=== PATIENT | female | born 1935 | race Caucasian/White ===

== ENCOUNTER 2016-11-11 15:52 | Emergency (ER) | payer MEDICARE, OTHER ==
[2016-11-11 16:02] VITALS: BP 107/93
--- NOTE | 2016-11-11 16:58 | EDM.PDOC ---
ED HPI GENERAL MEDICAL PROBLEM - General Chief Complaint: Respiratory Problem Stated Complaint: ASTHMA FLARED UP Time Seen by Provider: 11/11/16 16:45 Source of Information: Reports: Patient History Limitations: Reports: No Limitations - History of Present Illness INITIAL COMMENTS - FREE TEXT/NARRATIVE: The patient reports she has been having increased shortness of breath for the past 3 days. The patient also reports some pain in her chest going to her back. The patient does have a history of asthma. The patient reports the last time she had these symptoms her symptoms were improved with a CPAP. The patient attempted to get into the clinic, but was advised to come to the ED for continued evaluation and further management. Onset Date: 11/09/16 Duration: Constant, Getting Worse Location: Reports: Chest Quality: Reports: Dull, Pressure Severity: Moderate Improves with: Reports: None Worsens with: Reports: None Associated Symptoms: Reports: Chest Pain, Shortness of Breath Chest Pain Score (Numeric/FACES): 8 - Related Data Allergies Allergy/AdvReac Type Severity Reaction Status Date / Time amoxicillin [Amoxicillin] Allergy Abdominal Verified 11/11/16 15:58 Pain amoxicillin trihydrate Allergy Cannot Verified 11/11/16 15:58 [From Augmentin] Remember fluticasone propionate Allergy Cannot Verified 11/11/16 15:58 [From Flonase] Remember gabapentin Allergy Cannot Verified 11/11/16 15:58 Remember levofloxacin [From Levaquin] Allergy Cannot Verified 11/11/16 15:58 Remember potassium clavulanate Allergy Cannot Verified 11/11/16 15:58 [From Augmentin] Remember pravastatin Allergy Cannot Verified 11/11/16 15:58 Remember rosuvastatin calcium Allergy Cannot Verified 11/11/16 15:58 [From Crestor] Remember simvastatin Allergy Cannot Verified 11/11/16 15:58 Remember Home Meds: Home Meds Acetaminophen/HYDROcodone [[place] 325-7.5 MG] 1 cap PO Q6HR PRN 05/04/14 [History ] Budesonide [Pulmicort] 0.5 mg IH BID PRN 05/04/14 [History] LORazepam [Ativan] 0.5 mg PO Q6H PRN 05/04/14 [History] Metolazone [Zaroxolyn] 5 mg ORAL.INH DAILY 05/04/14 [History] Omeprazole 20 mg PO DAILY 05/04/14 [History] Potassium Chloride 20 meq PO DAILY 05/04/14 [History] Albuterol [Proair HFA] 2 puff INH DAILY PRN 05/22/14 [History] Calcium Carb & Citrate/Vit D3 [Calcium + D3 ER Tablet] 1 each PO BID 05/22/14 [ History] Hydrocodone/Acetaminophen [Hydrocodon-Acetaminoph 7.5-325] 1 tab PO Q6H PRN 06/04 [History] Lisinopril [Prinivil] 20 mg PO DAILY 05/22/14 [History] Pravastatin [Pravachol] 20 mg PO DAILY 05/22/14 [History] Past Medical History HEENT History: Reports: Impaired Vision Cardiovascular History: Reports: Hypertension Respiratory History: Reports: Asthma Gastrointestinal History: Reports: GERD Musculoskeletal History: Reports: Other (See Below) Other Musculoskeletal History: nerve pain, ankle pain Psychiatric History: Reports: Anxiety, Depression Endocrine/Metabolic History: Reports: Obesity/BMI 30+ - Past Surgical History GI Surgical History: Reports: Appendectomy, Cholecystectomy Social & Family History - Family History Family Medical History: Noncontributory - Tobacco Use Smoking Status *Q: Never Smoker Used Tobacco, but Quit: No Second Hand Smoke Exposure: No - Caffeine Use Caffeine Use: Reports: None - Alcohol Use Days Per Week of Alcohol Use: 0 - Recreational Drug Use Recreational Drug Use: No Drug Use in Last 12 Months: No - Living Situation & Occupation Living situation: Reports: Occupation: Retired ED ROS GENERAL - Review of Systems Review Of Systems: ROS reveals no pertinent complaints other than HPI. ED EXAM, GENERAL - Physical Exam Exam: See Below Exam Limited By: No Limitations General Appearance: Alert, WD/WN, Moderate Distress Eye Exam: Bilateral Eye: EOMI, Normal Inspection, PERRL Ears: Normal External Exam, Normal Canal, Hearing Grossly Normal, Normal TMs Nose: Normal Inspection, Normal Mucosa, No Blood Throat/Mouth: Normal Inspection, Normal Lips, Normal Teeth, Normal Gums, Normal Oropharynx, Normal Voice, No Airway Compromise Head: Atraumatic, Normocephalic Neck: Normal Inspection, Supple, Non-Tender, Full Range of Motion Respiratory/Chest: No Respiratory Distress, No Accessory Muscle Use, Chest Non- Tender, Decreased Breath Sounds (RLQ) Cardiovascular: Normal Peripheral Pulses, Regular Rate, Rhythm, No Edema, No Gallop, No JVD, No Murmur, No Rub GI/Abdominal: Normal Bowel Sounds, Soft, Non-Tender, No Organomegaly, No Distention, No Abnormal Bruit, No Mass (Female) Exam: Deferred Rectal (Female) Exam: Deferred Back Exam: Normal Inspection, Full Range of Motion, NT Extremities: Normal Inspection, Normal Range of Motion, Non-Tender, Normal Capillary Refill, No Pedal Edema Neurological: Alert, Oriented, CN II-XII Intact, Normal Cognition, Normal Gait, Normal Reflexes, No Motor/Sensory Deficits Psychiatric: Normal Affect, Normal Mood Skin Exam: Warm Lymphatic: No Adenopathy Course - Vital Signs Last Recorded V/S: Last Vital Signs Temp 36.8 C 11/11/16 16:00 Pulse 108 H 11/11/16 16:00 Resp 20 11/11/16 16:00 BP 107/93 H 11/11/16 16:00 Pulse Ox 93 L 11/11/16 16:00 - Orders/Labs/Meds Orders: Active Orders 24 hr Category Date Time Status EKG Documentation Completion [RC] URGENT Care 11/11/16 16:53 Active Chest 2V [CR] Urgent Exams 11/11/16 16:27 Taken Labs: Laboratory Tests 11/11/16 11/11/16 11/11/16 Range/Units 16:38 16:38 16:38 WBC 10.0 (5.0-10.0) 10^3/uL RBC 4.17 L (4.2-5.4) 10^6/uL Hgb 12.6 (12.0-16.0) g/dL Hct 36.8 L (37.0-47.0) % MCV 88.2 (80-100) fL MCH 30.2 (27.0-34.0) pg MCHC 34.2 (33.0-35.0) g/dL Plt Count 302 (150-450) 10^3/uL Neut % (Auto) 57.6 (42.2-75.2) % Lymph % (Auto) 26.0 (20.5-50.1) % [place] % (Auto) 10.4 H (2-8) % Eos % (Auto) 5.7 H (1.0-3.0) % Baso % (Auto) 0.3 (0.0-1.0) % Sodium 136 (135-145) mmol/L Potassium 3.6 (3.6-5.0) mmol/L Chloride 97 L (101-111) mmol/L Carbon Dioxide 28.0 (21.0-31.0) mmol/L Anion Gap 14.6 BUN 16 (7-18) mg/dL Creatinine 0.9 (0.6-1.3) mg/dL Est Cr Clr Drug Dosing 40.09 mL/min Estimated GFR (MDRD) > 60 BUN/Creatinine Ratio 17.77 Glucose 148 H (74-105) mg/dL Lactic Acid 1.6 (0.5-2.2) mmol/L Calcium 9.5 (8.4-10.2) mg/dl Total Bilirubin 0.4 (0.2-1.0) mg/dL AST 24 (10-42) IU/L ALT 20 (10-60) IU/L Alkaline Phosphatase 58 (42-121) IU/L Troponin I (0.00-0.02) ng/ml Total Protein 7.5 (6.7-8.2) g/dl Albumin 4.0 (3.2-5.5) g/dl Globulin 3.5 Albumin/Globulin Ratio 1.14 07/25/17 Range/Units 16:38 WBC (5.0-10.0) 10^3/uL RBC (4.2-5.4) 10^6/uL Hgb (12.0-16.0) g/dL Hct (37.0-47.0) % MCV (80-100) fL MCH (27.0-34.0) pg MCHC (33.0-35.0) g/dL Plt Count (150-450) 10^3/uL Neut % (Auto) (42.2-75.2) % Lymph % (Auto) (20.5-50.1) % [place] % (Auto) (2-8) % Eos % (Auto) (1.0-3.0) % Baso % (Auto) (0.0-1.0) % Sodium (135-145) mmol/L Potassium (3.6-5.0) mmol/L Chloride (101-111) mmol/L Carbon Dioxide (21.0-31.0) mmol/L Anion Gap BUN (7-18) mg/dL Creatinine (0.6-1.3) mg/dL Est Cr Clr Drug Dosing mL/min Estimated GFR (MDRD) BUN/Creatinine Ratio Glucose (74-105) mg/dL Lactic Acid (0.5-2.2) mmol/L Calcium (8.4-10.2) mg/dl Total Bilirubin (0.2-1.0) mg/dL AST (10-42) IU/L ALT (10-60) IU/L Alkaline Phosphatase (42-121) IU/L Troponin I < 0.02 (0.00-0.02) ng/ml Total Protein (6.7-8.2) g/dl Albumin (3.2-5.5) g/dl Globulin Albumin/Globulin Ratio Meds: Medications Discontinued Medications Generic Name Dose Route Start Last Admin Trade Name Freq PRN Reason Stop Dose Admin Methylprednisolone Sodium Succinate 40 mg 11/11/16 17:27 Solu-Medrol IM 11/11/16 17:28 ONETIME ONE Departure - Departure Time of Disposition: 17:29 Disposition: Home, Self-Care 01 Condition: Fair Clinical Impression: Asthma exacerbation in COPD - Discharge Information Instructions: Chronic Obstructive Pulmonary Disease Exacerbation, [id number] , Asthma, Adult Forms: ED Department Discharge Care Plan Goals: The patient was advised of her examination, lab and x-ray results during the visit. The patient was given an injection of SoluMedrol (40 mg) while in the ED. The patient was discharged with a script for Prednisone (20 mg) #10 to take 2 by mouth daily for 5 days and Keflex (500 mg) #30 to take 1 by mouth 3 times per day for 10 days. If the patient has any additional symptoms or concerns, the patient should follow-up with her primary care facility or return to the emergency department. - My Orders Last 24 Hours: My Active Orders 11/11/16 16:27 Chest 2V [CR] Urgent 11/11/16 16:53 EKG Documentation Completion [RC] URGENT - Assessment/Plan Last 24 Hours: My Active Orders 11/11/16 16:27 Chest 2V [CR] Urgent 11/11/16 16:53 EKG Documentation Completion [RC] URGENT
[2016-11-11 17:06] LABS: CHLORIDE,CL 97 mmol/L (101-111); SODIUM,NA 136 mmol/L (135-145)
[2016-11-11] MEDS ORDERED: methylPREDNISolone Sodium Succinate 40 MG/1 ML SDV IM ONE (17:27)
--- NOTE | 2016-11-12 09:45 | EKG ---
11/11/2016 - KLAUDIA GERBER RADHA - TIME: 1554 hours. EKG shows normal sinus rhythm. [facility] /[id number]
== END 2016-11-11 17:40 | disposition home or self-care (01) ==
LOC: DL.ED 15:52
DX: J45.901 Unspecified asthma with (acute) exacerbation (principal); J44.9 Chronic obstructive pulmonary disease, unspecified; H54.7 Unspecified visual loss; I10 Essential (primary) hypertension; K21.9 Gastro-esophageal reflux disease without esophagitis; E66.9 Obesity, unspecified; Z90.49 Acquired absence of other specified parts of digestive tract; Z88.1 Allergy status to other antibiotic agents; Z88.8 Allergy status to other drugs, medicaments and biological substances; Z79.899 Other long term (current) drug therapy
CPT/HCPCS: 36415; 71020; 80053; 83605; 84484; 85025; 93005; 93010; 96372; 99285; J2920

== ENCOUNTER 2018-12-17 19:40 | Inpatient (IN) | payer MEDICARE, OTHER ==
[2018-12-17] MEDS ORDERED: Ondansetron 4 MG/2 ML SDV IV ONE (20:15)
[2018-12-17] MEDS ORDERED: Sodium Chloride 0.9% 1,000 ML IV ONE (20:15)
[2018-12-17 20:46] LABS: ANION GAP 18.4
[2018-12-17] MEDS ORDERED: Albuterol/Ipratropium 3.0-0.5 MG/3 ML Neb Soln NEB ONE (20:59)
--- NOTE | 2018-12-17 21:57 | EDM.PDOC ---
ED HPI GENERAL MEDICAL PROBLEM - General Chief Complaint: Gastrointestinal Problem Stated Complaint: VOMITING Time Seen by Provider: 12/17/18 20:45 Source of Information: Reports: Patient History Limitations: Reports: No Limitations - History of Present Illness INITIAL COMMENTS - FREE TEXT/NARRATIVE: This 83 yo female patient reports to the ED with nausea/vomiting due to taking antibiotics. The patient also reports a cough that has been getting worse throughout the week. The patient was seen at the [facility] this week, diagnosed with a UTI and started on an antibiotic (patient does not recall the name). Two days later, the patient was called by the clinic and told she also has pneumonia. The patient was advised to stop taking the UTI antibiotic and start a different antibiotic. Onset: Today Duration: Constant, Resolved Prior to Arrival Location: Reports: Chest Quality: Reports: Other Severity: Moderate Improves with: Reports: None Worsens with: Reports: None Associated Symptoms: Reports: cough w sputum, Nausea/Vomiting Lower Abdomen Pain Score (Numeric/FACES): 8 - Related Data Allergies Allergy/AdvReac Type Severity Reaction Status Date / Time amoxicillin [Amoxicillin] Allergy Abdominal Verified 12/17/18 20:34 Pain amoxicillin trihydrate Allergy Cannot Verified 12/17/18 20:34 [From Augmentin] Remember fluticasone propionate Allergy Cannot Verified 12/17/18 20:34 [From Flonase] Remember gabapentin Allergy Cannot Verified 12/17/18 20:34 Remember levofloxacin [From Levaquin] Allergy Cannot Verified 12/17/18 20:34 Remember potassium clavulanate Allergy Cannot Verified 12/17/18 20:34 [From Augmentin] Remember pravastatin Allergy Cannot Verified 12/17/18 20:34 Remember rosuvastatin calcium Allergy Cannot Verified 12/17/18 20:34 [From Crestor] Remember simvastatin Allergy Cannot Verified 12/17/18 20:34 Remember Home Meds: Home Meds Acetaminophen/HYDROcodone [[place] 325-7.5 MG] 1 cap PO Q6HR PRN 05/04/14 [History ] Budesonide [Pulmicort] 0.5 mg IH BID PRN 05/04/14 [History] LORazepam [Ativan] 0.5 mg PO Q6H PRN 05/04/14 [History] Omeprazole 20 mg PO DAILY 05/04/14 [History] Potassium Chloride 20 meq PO DAILY 05/04/14 [History] metOLazone [Zaroxolyn] 5 mg ORAL.INH DAILY 05/04/14 [History] Albuterol [Proair HFA] 2 puff INH DAILY PRN 05/22/14 [History] Calcium Carb & Citrate/Vit D3 [Calcium + D3 ER Tablet] 1 each PO BID 05/22/14 [ History] Hydrocodone/Acetaminophen [Hydrocodon-Acetaminoph 7.5-325] 1 tab PO Q6H PRN 06/04 [History] Lisinopril [Prinivil] 20 mg PO DAILY 05/22/14 [History] Pravastatin [Pravachol] 20 mg PO DAILY 05/22/14 [History] Doxycycline Hyclate 1 tab PO BID 12/17/18 [History] Ondansetron HCl [Ondansetron] 1 tab PO Q8HR 12/17/18 [History] Past Medical History HEENT History: Reports: Impaired Vision Cardiovascular History: Reports: Hypertension Respiratory History: Reports: Asthma Gastrointestinal History: Reports: GERD Musculoskeletal History: Reports: Other (See Below) Other Musculoskeletal History: nerve pain, ankle pain Psychiatric History: Reports: Anxiety, Depression Endocrine/Metabolic History: Reports: Obesity/BMI 30+ - Past Surgical History GI Surgical History: Reports: Appendectomy, Cholecystectomy Social & Family History - Family History Family Medical History: Noncontributory - Tobacco Use Smoking Status *Q: Never Smoker Second Hand Smoke Exposure: No - Caffeine Use Caffeine Use: Reports: Soda - Recreational Drug Use Recreational Drug Use: No - Living Situation & Occupation Living situation: Reports: Occupation: Retired ED ROS GENERAL - Review of Systems Review Of Systems: ROS reveals no pertinent complaints other than HPI. ED EXAM, GENERAL - Physical Exam Exam: See Below Exam Limited By: No Limitations General Appearance: Alert, WD/WN, Moderate Distress Eye Exam: Bilateral Eye: EOMI, Normal Inspection, PERRL Ears: Normal External Exam, Normal Canal, Hearing Grossly Normal, Normal TMs Nose: Normal Inspection, Normal Mucosa, No Blood Throat/Mouth: Normal Inspection, Normal Lips, Normal Teeth, Normal Gums, Normal Oropharynx, Normal Voice, No Airway Compromise Head: Atraumatic, Normocephalic Neck: Normal Inspection, Supple, Non-Tender, Full Range of Motion Respiratory/Chest: Rhonchi (diffuse), Wheezing (diffuse) Cardiovascular: Normal Peripheral Pulses, Regular Rate, Rhythm, No Edema, No Gallop, No JVD, No Murmur, No Rub GI/Abdominal: Normal Bowel Sounds, Soft, Non-Tender, No Organomegaly, No Distention, No Abnormal Bruit, No Mass (Female) Exam: Deferred Rectal (Female) Exam: Deferred Back Exam: Normal Inspection, Full Range of Motion, NT Extremities: Normal Inspection, Normal Range of Motion, Non-Tender, Normal Capillary Refill, No Pedal Edema Neurological: Alert, Oriented, CN II-XII Intact, Normal Cognition, Normal Gait, Normal Reflexes, No Motor/Sensory Deficits Psychiatric: Normal Affect, Normal Mood Skin Exam: Warm, Dry, Intact, Normal Color, No Rash Lymphatic: No Adenopathy Course - Vital Signs Last Recorded V/S: Last Vital Signs Temp 37.1 C 12/17/18 20:01 Pulse 90 12/17/18 20:01 Resp 19 12/17/18 20:01 BP 159/88 H 12/17/18 20:01 Pulse Ox 96 12/17/18 20:01 - Orders/Labs/Meds Orders: Active Orders 24 hr Category Date Time Status RT Aerosol Therapy [RC] ASDIRECTED Care 12/17/18 20:59 Ordered Chest 2V [CR] Urgent Exams 12/17/18 20:56 Ordered CULTURE BLOOD [BC] Stat Lab 12/17/18 20:16 Ordered CULTURE BLOOD [BC] Stat Lab 12/17/18 21:29 Ordered Labs: Laboratory Tests 12/17/18 12/17/18 12/17/18 Range/Units 20:19 20:19 20:19 WBC 12.1 H (5.0-10.0) 10^3/uL RBC 4.59 (4.2-5.4) 10^6/uL Hgb 13.9 (12.0-16.0) g/dL Hct 38.8 (37.0-47.0) % MCV 84.5 D (80-100) fL MCH 30.3 (27.0-34.0) pg MCHC 35.8 H (33.0-35.0) g/dL Plt Count 322 (150-450) 10^3/uL Neut % (Auto) 75.6 H (42.2-75.2) % Lymph % (Auto) 16.3 L (20.5-50.1) % [place] % (Auto) 7.8 (2-8) % Eos % (Auto) 0.2 L (1.0-3.0) % Baso % (Auto) 0.1 (0.0-1.0) % Sodium 123 L D (135-145) mmol/L Potassium 3.4 L (3.6-5.0) mmol/L Chloride 85 L D (101-111) mmol/L Carbon Dioxide 23.0 (21.0-31.0) mmol/L Anion Gap 18.4 BUN 15 (7-18) mg/dL Creatinine 1.0 (0.6-1.3) mg/dL Est Cr Clr Drug Dosing 34.90 mL/min Estimated GFR (MDRD) 53 BUN/Creatinine Ratio 15.00 Glucose 202 H (74-105) mg/dL Lactic Acid 1.5 (0.5-2.2) mmol/L Calcium 9.1 (8.4-10.2) mg/dl Total Bilirubin 1.0 (0.2-1.0) mg/dL AST 26 (10-42) IU/L ALT 26 (10-60) IU/L Alkaline Phosphatase 53 (42-121) IU/L Total Protein 7.7 (6.7-8.2) g/dl Albumin 4.3 (3.2-5.5) g/dl Globulin 3.4 Albumin/Globulin Ratio 1.26 Meds: Medications Discontinued Medications Generic Name Dose Route Start Last Admin Trade Name Freq PRN Reason Stop Dose Admin Albuterol/Ipratropium 3 ml 12/17/18 20:59 12/17/18 21:06 Duoneb 3.0-0.5 Mg/3 Ml NEB 12/17/18 21:00 3 ml ONETIME ONE Administration Sodium Chloride 1,000 mls @ 999 mls/hr 12/17/18 20:15 12/17/18 21:03 Normal Saline IV 12/17/18 21:15 125 mls/hr .BOLUS ONE Infusion Ondansetron HCl 4 mg 12/17/18 20:15 12/17/18 20:30 Zofran IV 12/17/18 20:16 4 mg ONETIME ONE Administration Departure - Departure Time of Disposition: 22:05 Disposition: Admitted As Inpatient 68 Condition: Fair Clinical Impression: Hyponatremia Pneumonia Qualifiers: Pneumonia type: due to unspecified organism Laterality: unspecified laterality Lung location: unspecified part of lung Qualified Code(s): J18.9 - Pneumonia, unspecified organism Nausea & vomiting Qualifiers: Vomiting type: unspecified Vomiting Intractability: unspecified Qualified Code( s): R11.2 - Nausea with vomiting, unspecified - Discharge Information Care Plan Goals: Discussed the patient's history, examination, lab and preliminary x-ray read with Dr. Ghosh. Dr. Ghosh accepted the patient as an acute inpatient admission at . - My Orders Last 24 Hours: My Active Orders 12/17/18 20:16 CULTURE BLOOD [BC] Stat 12/17/18 20:56 Chest 2V [CR] Urgent 12/17/18 20:59 RT Aerosol Therapy [RC] ASDIRECTED 12/17/18 21:29 CULTURE BLOOD [BC] Stat - Assessment/Plan Last 24 Hours: My Active Orders 12/17/18 20:16 CULTURE BLOOD [BC] Stat 12/17/18 20:56 Chest 2V [CR] Urgent 12/17/18 20:59 RT Aerosol Therapy [RC] ASDIRECTED 12/17/18 21:29 CULTURE BLOOD [BC] Stat
[2018-12-17] MEDS ORDERED: Potassium Chloride 20 MEQ in Premix Bag 1 BAG IV ONE (23:00)
[2018-12-17] MEDS ORDERED: Ondansetron 4 MG/2 ML SDV IVPUSH PRN (23:02)
[2018-12-17] MEDS ORDERED: ACETAMINOPHEN PO PRN (23:06)
[2018-12-17] MEDS ORDERED: HYDROCODONE PO PRN (23:06)
[2018-12-17] MEDS ORDERED: Albuterol 6.7 GM Inhaler INH PRN (23:06)
[2018-12-17] MEDS ORDERED: Benzonatate 100 MG Cap PO PRN (23:11)
--- NOTE | 2018-12-17 23:19 | PCM.HP ---
H&P History of Present Illness - General Date of Service: 12/17/18 Admit Problem/Dx: Admission Diagnosis/Problem Admission Diagnosis/Problem Respiratory distress Source of Information: Patient History Limitations: Reports: No Limitations - History of Present Illness Initial Comments - Free Text/Narative: The patient is an 83-year-old female with medical history of hypertension, gastroesophageal reflux disease, depression, asthma. The patient presented with complaint of cough and sore throats whic has been going on for one week. Symptoms has worsened over time. The patient has been seen multiple times by Nurse practitioner's.. Initially she was given nitrofurantoin for bladder infection. Later on antibiotics were changed. She has had multiple antibiotics including Bactrim, levofloxacin, and most recently doxycycline. She was told that she has pneumonia and also had tract infection. With the last antibiotics, the patient started having intractable nausea and vomiting. Has vomited multiple times and not able to keep food down. Because of that she presented to the emergency room Lower Abdomen Pain Score (Numeric/FACES): 8 - Related Data Allergies/Adverse Reactions: Allergies Allergy/AdvReac Type Severity Reaction Status Date / Time amoxicillin [Amoxicillin] Allergy Abdominal Verified 12/17/18 22:42 Pain amoxicillin trihydrate Allergy Cannot Verified 12/17/18 22:42 [From Augmentin] Remember fluticasone propionate Allergy Cannot Verified 12/17/18 22:42 [From Flonase] Remember gabapentin Allergy Cannot Verified 12/17/18 22:42 Remember levofloxacin [From Levaquin] Allergy Cannot Verified 12/17/18 22:42 Remember potassium clavulanate Allergy Cannot Verified 12/17/18 22:42 [From Augmentin] Remember pravastatin Allergy Cannot Verified 12/17/18 22:42 Remember rosuvastatin calcium Allergy Cannot Verified 12/17/18 22:42 [From Crestor] Remember Home Medications: Home Meds Acetaminophen/HYDROcodone [[place] 325-7.5 MG] 1 tab PO Q6HR PRN 05/04/14 [History ] Budesonide [Pulmicort] 0.5 mg NEB BID 05/04/14 [History] LORazepam [Ativan] 0.5 mg PO Q6H PRN 05/04/14 [History] Omeprazole 20 mg PO ACBREAKFAST 05/04/14 [History] Potassium Chloride 20 meq PO DAILY 05/04/14 [History] metOLazone [Zaroxolyn] 5 mg PO DAILY 05/04/14 [History] Albuterol [Proair HFA] 2 puff INH BID PRN 05/22/14 [History] Calcium Carb & Citrate/Vit D3 [Calcium + D3 ER Tablet] 2 tab PO WITHDINNER 05/22 [History] Lisinopril [Prinivil] 20 mg PO DAILY 05/22/14 [History] Pravastatin [Pravachol] 20 mg PO DAILY 05/22/14 [History] Doxycycline Hyclate 100 mg PO BID 12/17/18 [History] Levothyroxine [Synthroid] 100 mcg PO ACBREAKFAST 12/17/18 [History] Ondansetron HCl [Ondansetron] 4 mg PO Q8H PRN 12/17/18 [History] Simvastatin 10 mg PO Q48H 12/17/18 [History] Past Medical History HEENT History: Reports: Impaired Vision Cardiovascular History: Reports: Hypertension Respiratory History: Reports: Asthma Gastrointestinal History: Reports: GERD Musculoskeletal History: Reports: Other (See Below) Other Musculoskeletal History: nerve pain, ankle pain Psychiatric History: Reports: Anxiety, Depression Endocrine/Metabolic History: Reports: Obesity/BMI 30+ - Past Surgical History GI Surgical History: Reports: Appendectomy, Cholecystectomy Social & Family History - Family History Family Medical History: Noncontributory - Tobacco Use Smoking Status *Q: Never Smoker Second Hand Smoke Exposure: No - Caffeine Use Caffeine Use: Reports: Soda - Recreational Drug Use Recreational Drug Use: No - Living Situation & Occupation Living situation: Reports: Occupation: Retired H&P Review of Systems - Review of Systems: Review Of Systems: ROS reveals no pertinent complaints other than HPI. Pulmonary: Reports: No Symptoms Cardiovascular: Reports: No Symptoms Gastrointestinal: Reports: No Symptoms Genitourinary: Reports: No Symptoms Exam - Exam Exam: See Below - Vital Signs Vital Signs: Last Vital Signs Temp 37.1 C 12/17/18 20:01 Pulse 90 12/17/18 20:01 Resp 19 12/17/18 20:01 BP 159/88 H 12/17/18 20:01 Pulse Ox 96 12/17/18 20:01 Weight: 80.739 kg - Exam General: Alert, Oriented, Cooperative Neck: Supple, Trachea Midline, 2 Lungs: Decreased Breath Sounds GI/Abdominal Exam: Normal Bowel Sounds, Soft, Non-Tender, No Organomegaly, No Distention, No Abnormal Bruit, No Mass, Pelvis Stable Extremities: Normal Inspection, Normal Range of Motion, Non-Tender, No Pedal Edema, Normal Capillary Refill - Patient Data Lab Results Last 24 hrs: Laboratory Results - last 24 hr 12/17/18 12/17/18 12/17/18 Range/Units 20:19 20:19 20:19 WBC 12.1 H (5.0-10.0) 10^3/uL RBC 4.59 (4.2-5.4) 10^6/uL Hgb 13.9 (12.0-16.0) g/dL Hct 38.8 (37.0-47.0) % MCV 84.5 D (80-100) fL MCH 30.3 (27.0-34.0) pg MCHC 35.8 H (33.0-35.0) g/dL Plt Count 322 (150-450) 10^3/uL Neut % (Auto) 75.6 H (42.2-75.2) % Lymph % (Auto) 16.3 L (20.5-50.1) % [place] % (Auto) 7.8 (2-8) % Eos % (Auto) 0.2 L (1.0-3.0) % Baso % (Auto) 0.1 (0.0-1.0) % Sodium 123 L D (135-145) mmol/L Potassium 3.4 L (3.6-5.0) mmol/L Chloride 85 L D (101-111) mmol/L Carbon Dioxide 23.0 (21.0-31.0) mmol/L Anion Gap 18.4 BUN 15 (7-18) mg/dL Creatinine 1.0 (0.6-1.3) mg/dL Est Cr Clr Drug Dosing 34.90 mL/min Estimated GFR (MDRD) 53 BUN/Creatinine Ratio 15.00 Glucose 202 H (74-105) mg/dL Lactic Acid 1.5 (0.5-2.2) mmol/L Calcium 9.1 (8.4-10.2) mg/dl Total Bilirubin 1.0 (0.2-1.0) mg/dL AST 26 (10-42) IU/L ALT 26 (10-60) IU/L Alkaline Phosphatase 53 (42-121) IU/L Total Protein 7.7 (6.7-8.2) g/dl Albumin 4.3 (3.2-5.5) g/dl Globulin 3.4 Albumin/Globulin Ratio 1.26 Result Diagrams: 12/17/18 20:19 12/17/18 20:19 Problem List Initiated/Reviewed/Updated: Yes Orders Last 24hrs: Active Orders 24 hr Category Date Time Status Patient Status [ADT] Routine ADT 12/17/18 21:55 Active Patient Status [ADT] Routine ADT 12/17/18 23:02 Ordered Intake and Output [RC] QSHIFT Care 12/17/18 23:04 Ordered Oxygen Therapy [RC] PRN Care 12/17/18 23:02 Ordered RT Aerosol Therapy [RC] ASDIRECTED Care 12/17/18 20:59 Active Up ad Buffy [RC] ASDIRECTED Care 12/17/18 23:02 Ordered VTE/DVT Education [RC] PER UNIT ROUTINE Care 12/17/18 23:02 Ordered Vital Signs [RC] Q4H Care 12/17/18 23:02 Ordered Regular Diet [DIET] Diet 12/17/18 Breakfast Ordered Chest 2V [CR] Urgent Exams 12/17/18 20:56 Taken BASIC METABOLIC PANEL,BMP [CHEM] AM Lab 12/18/18 05:11 Ordered CBC WITH AUTO DIFF [HEME] AM Lab 12/18/18 05:11 Ordered CULTURE BLOOD [BC] Stat Lab 12/17/18 20:19 Received CULTURE BLOOD [BC] Stat Lab 12/17/18 21:47 Received Acetaminophen [Tylenol] Med 12/17/18 23:02 Ordered 650 mg PO Q4H PRN Acetaminophen/HYDROcodone [[place] 325-7.5 MG] Med 12/17/18 23:06 Ordered 1 tab PO Q6HR PRN Albuterol [Proventil HFA] Med 12/17/18 23:06 Ordered 2 puff INH BID PRN Azithromycin [Zithromax] 500 mg Med 12/17/18 23:15 Ordered Sodium Chloride 0.9% [Normal Saline] 250 ml IV Q24H Benzonatate [Tessalon Perles] Med 12/17/18 23:11 Ordered 100 mg PO TID PRN Budesonide [Pulmicort] Med 12/18/18 09:00 Ordered 0.5 mg NEB BID Calcium Carb & Citrate/Vit D3 [Calcium + D3 ER Tablet] Med 12/18/18 18:00 Ordered 2 tab PO WITHDINNER Heparin Sodium Med 12/18/18 06:00 Ordered 5,000 units SUBCUT Q8HR Levothyroxine [Synthroid] Med 12/18/18 06:00 Ordered 100 mcg PO ACBREAKFAST Omeprazole Med 12/18/18 06:00 Ordered 20 mg PO ACBREAKFAST Ondansetron [Zofran] Med 12/17/18 23:02 Ordered 4 mg IVPUSH Q6H PRN Sodium Chloride 0.9% @ 125 MLS/HR (1000ml) Med 12/17/18 23:15 Ordered Sodium Chloride 0.9% [Normal Saline] 1,000 ml IV ASDIRECTED cefTRIAXone [Rocephin] 1 gm Med 12/17/18 23:15 Ordered Sodium Chloride 0.9% [Normal Saline] 50 ml IV Q24H Resuscitation Status Routine Resus Stat 12/17/18 23:02 Ordered Medication Orders Acetaminophen (Tylenol) 650 mg PO Q4H PRN PRN Reason: Pain (Mild 1-3)/fever Albuterol (Proventil Hfa) gm INH BID PRN PRN Reason: Shortness of Breath Budesonide (Pulmicort) 0.5 mg NEB BID CARLA Heparin Sodium (Porcine) (Heparin Sodium) 5,000 units SUBCUT Q8HR CARLA Sodium Chloride (Normal Saline) 1,000 mls @ 125 mls/hr IV ASDIRECTED [facility]LA Azithromycin 500 mg/ Sodium (Chloride) 250 mls @ 250 mls/hr IV Q24H [facility]LA Ceftriaxone Sodium 1 gm/ (Sodium Chloride) 50 mls @ 50 mls/hr IV Q24H [facility]LA Levothyroxine Sodium (Synthroid) 100 mcg PO ACBREAKFAST CARLA Non-Formulary Medication (Acetaminophen/Hydrocodone [[place] 325-7.5 Mg]) 1 tab PO Q6HR PRN PRN Reason: Pain Non-Formulary Medication (Calcium Carb & Citrate/Vit D3 [Calcium + D3 Er Tablet] ) 2 tab PO WITHDINNER CARLA Omeprazole (Omeprazole) 20 mg PO ACBREAKFAST CARLA Ondansetron HCl (Zofran) 4 mg IVPUSH Q6H PRN PRN Reason: Nausea/Vomiting Assessment/Plan Comment:: #. Possible pneumonia Patient has been coughing. White cell count is elevated and chest x-ray showed bibasilar density mole on the left compared to the right. #. Hyponatremia likely likely due to intractable nausea and vomiting #. Hypertension Blood pressure is within acceptable limits #. Hypokalemia next and serum potassium is low down to 3.4 This is as a result of gastrointestinal loss. Patient has also been on metolazone #. Chronic medical illnesses: Depression, gastric surgery reflux disease, asthma Continue regular medications for these Plan: Admit patient to medical floor Empiric antibiotics with intravenous ceftriaxone and intravenous azithromycin Send sputum for Gram stain and cultures intravenous normal saline Obtain repeat basic metabolic panel Close hemodynamic monitoring.
[2018-12-18] MEDS: Azithromycin 500 MG in Sodium Chloride 0.9% 250 ML IV SCH ×2 (00:12→23:07)
[2018-12-18] MEDS: LORazepam 0.5 MG Tab PO PRN (00:29)
[2018-12-18] MEDS: Acetaminophen/HYDROcodone 325-5 MG Tab PO PRN ×2 (00:30→23:08)
[2018-12-18] MEDS: cefTRIAXone 1 GM in Sodium Chloride 0.9% 50 ML IV SCH (01:19)
[2018-12-18] MEDS: Sodium Chloride 0.9% 1,000 ML IV SCH ×3 (01:23→18:18)
[2018-12-18] MEDS: Acetaminophen 325 MG Tab PO PRN (01:51)
[2018-12-18] MEDS: Omeprazole 20 MG Cap.CR PO SCH (06:10)
[2018-12-18] MEDS: Levothyroxine 100 MCG Tab PO SCH (06:10)
[2018-12-18] MEDS: Heparin Sodium 5,000 Units/ML Vial SUBCUT SCH ×3 (06:10→20:59)
[2018-12-18 06:34] LABS: ANION GAP 13.4
[2018-12-18] MEDS: Budesonide 0.5 MG/2 ML Neb Susp NEB SCH ×2 (07:36→18:15)
[2018-12-18] MEDS: Lisinopril 20 MG Tab PO SCH (08:50)
--- NOTE | 2018-12-18 10:42 | PCM.PN ---
- General Info Date of Service: 12/18/18 Subjective Update: The patient offers no new complaint today Patient continues to have mild cough. She has been having intermittent nausea and vomiting.She indicates that she feels nausea. Has not vomited today. - Review of Systems General: Reports: No Symptoms Pulmonary: Reports: No Symptoms Cardiovascular: Reports: No Symptoms Gastrointestinal: Reports: No Symptoms - Patient Data Vitals - Most Recent: Last Vital Signs Temp 36.1 C 12/18/18 07:49 Pulse 75 12/18/18 07:49 Resp 18 12/18/18 07:49 BP 124/53 L 12/18/18 08:50 Pulse Ox 98 12/18/18 07:49 Weight - Most Recent: 80.739 kg I&O - Last 24 Hours: Intake & Output 12/17/18 12/18/18 12/18/18 22:59 06:59 14:59 Intake Total 300 1291 Output Total 600 550 Balance -300 741 Lab Results Last 24 Hours: Laboratory Results - last 24 hr 12/17/18 12/17/18 12/17/18 Range/Units 20:19 20:19 20:19 WBC 12.1 H (5.0-10.0) 10^3/uL RBC 4.59 (4.2-5.4) 10^6/uL Hgb 13.9 (12.0-16.0) g/dL Hct 38.8 (37.0-47.0) % MCV 84.5 D (80-100) fL MCH 30.3 (27.0-34.0) pg MCHC 35.8 H (33.0-35.0) g/dL Plt Count 322 (150-450) 10^3/uL Neut % (Auto) 75.6 H (42.2-75.2) % Lymph % (Auto) 16.3 L (20.5-50.1) % [place] % (Auto) 7.8 (2-8) % Eos % (Auto) 0.2 L (1.0-3.0) % Baso % (Auto) 0.1 (0.0-1.0) % Sodium 123 L D (135-145) mmol/L Potassium 3.4 L (3.6-5.0) mmol/L Chloride 85 L D (101-111) mmol/L Carbon Dioxide 23.0 (21.0-31.0) mmol/L Anion Gap 18.4 BUN 15 (7-18) mg/dL Creatinine 1.0 (0.6-1.3) mg/dL Est Cr Clr Drug Dosing 34.90 mL/min Estimated GFR (MDRD) 53 BUN/Creatinine Ratio 15.00 Glucose 202 H (74-105) mg/dL Lactic Acid 1.5 (0.5-2.2) mmol/L Calcium 9.1 (8.4-10.2) mg/dl Total Bilirubin 1.0 (0.2-1.0) mg/dL AST 26 (10-42) IU/L ALT 26 (10-60) IU/L Alkaline Phosphatase 53 (42-121) IU/L Total Protein 7.7 (6.7-8.2) g/dl Albumin 4.3 (3.2-5.5) g/dl Globulin 3.4 Albumin/Globulin Ratio 1.26 12/18/18 12/18/18 Range/Units 06:02 06:02 WBC 10.1 H (5.0-10.0) 10^3/uL RBC 3.80 L (4.2-5.4) 10^6/uL Hgb 11.5 L D (12.0-16.0) g/dL Hct 32.9 L (37.0-47.0) % MCV 86.6 (80-100) fL MCH 30.3 (27.0-34.0) pg MCHC 35.0 (33.0-35.0) g/dL Plt Count 275 (150-450) 10^3/uL Neut % (Auto) 73.0 (42.2-75.2) % Lymph % (Auto) 18.1 L (20.5-50.1) % [place] % (Auto) 8.1 H (2-8) % Eos % (Auto) 0.7 L (1.0-3.0) % Baso % (Auto) 0.1 (0.0-1.0) % Sodium 125 L (135-145) mmol/L Potassium 3.4 L (3.6-5.0) mmol/L Chloride 91 L (101-111) mmol/L Carbon Dioxide 24.0 (21.0-31.0) mmol/L Anion Gap 13.4 BUN 14 (7-18) mg/dL Creatinine 1.0 (0.6-1.3) mg/dL Est Cr Clr Drug Dosing 34.90 mL/min Estimated GFR (MDRD) 53 BUN/Creatinine Ratio Glucose 149 H (74-105) mg/dL Lactic Acid (0.5-2.2) mmol/L Calcium 8.0 L (8.4-10.2) mg/dl Total Bilirubin (0.2-1.0) mg/dL AST (10-42) IU/L ALT (10-60) IU/L Alkaline Phosphatase (42-121) IU/L Total Protein (6.7-8.2) g/dl Albumin (3.2-5.5) g/dl Globulin Albumin/Globulin Ratio Crescencio Results Last 24 Hours: Microbiology 12/17/18 23:45 Gram Stain - Final Sputum - Expectorated Med Orders - Current: Current Medications Acetaminophen (Tylenol) 650 mg PO Q4H PRN PRN Reason: Pain (Mild 1-3)/fever Last Admin: 12/18/18 01:51 Dose: 650 mg Hydrocodone Bitart/Acetaminophen ([place] 325-5 Mg) 1 tab PO Q6H PRN PRN Reason: Pain Last Admin: 12/18/18 00:30 Dose: 1 tab Albuterol (Proventil Hfa) 0 gm INH BID PRN PRN Reason: Shortness of Breath Benzonatate (Tessalon Perles) 100 mg PO TID PRN PRN Reason: Cough Budesonide (Pulmicort) 0.5 mg NEB BIDRT [facility] Last Admin: 12/18/18 07:36 Dose: 0.5 mg Calcium Carbonate (Calcium Carbonate/Vitamin D 1250 Mg-200 Unit) 1 tab PO WITHDINNER [facility] Heparin Sodium (Porcine) (Heparin Sodium) 5,000 units SUBCUT Q8HR [facility] Last Admin: 12/18/18 06:10 Dose: 5,000 units Sodium Chloride (Normal Saline) 1,000 mls @ 125 mls/hr IV ASDIRECTED [facility] Last Admin: 12/18/18 10:15 Dose: 125 mls/hr Azithromycin 500 mg/ Sodium (Chloride) 250 mls @ 250 mls/hr IV Q24H [facility] Last Admin: 12/18/18 00:12 Dose: 250 mls/hr Ceftriaxone Sodium 1 gm/ (Sodium Chloride) 50 mls @ 100 mls/hr IV Q24H [facility] Last Admin: 12/18/18 01:19 Dose: 100 mls/hr Levothyroxine Sodium (Synthroid) 100 mcg PO ACBREAKFAST [facility] Last Admin: 12/18/18 06:10 Dose: 100 mcg Lisinopril (Prinivil) 20 mg PO DAILY [facility] Last Admin: 12/18/18 08:50 Dose: 20 mg Lorazepam (Ativan) 0.5 mg PO Q6H PRN PRN Reason: Anxiety Last Admin: 12/18/18 00:29 Dose: 0.5 mg Omeprazole (Omeprazole) 20 mg PO ACBREAKFAST [facility] Last Admin: 12/18/18 06:10 Dose: 20 mg Ondansetron HCl (Zofran) 4 mg IVPUSH Q6H PRN PRN Reason: Nausea/Vomiting Last Admin: 12/18/18 00:18 Dose: 4 mg Discontinued Medications Albuterol/Ipratropium (Duoneb 3.0-0.5 Mg/3 Ml) 3 ml NEB ONETIME ONE Stop: 12/17/18 21:00 Last Admin: 12/17/18 21:06 Dose: 3 ml Sodium Chloride (Normal Saline) 1,000 mls @ 999 mls/hr IV .BOLUS ONE Stop: 12/17/18 21:15 Last Infusion: 12/17/18 21:03 Dose: 125 mls/hr Potassium Chloride 20 meq/ (Premix) 100 mls @ 50 mls/hr IV ONETIME ONE Stop: 12/18/18 00:59 Last Admin: 12/18/18 01:55 Dose: 50 mls/hr Non-Formulary Medication (Acetaminophen/Hydrocodone [[place] 325-7.5 Mg]) 1 tab PO Q6H PRN PRN Reason: Pain Ondansetron HCl (Zofran) 4 mg IV ONETIME ONE Stop: 12/17/18 20:16 Last Admin: 12/17/18 20:30 Dose: 4 mg - Exam General: Alert, Oriented, Cooperative Neck: Supple Lungs: Clear to Auscultation, Normal Respiratory Effort Cardiovascular: Regular Rate, Regular Rhythm GI/Abdominal Exam: Normal Bowel Sounds, Soft, Non-Tender, No Organomegaly, No Distention, No Abnormal Bruit, No Mass, Pelvis Stable - Problem List Review Problem List Initiated/Reviewed/Updated: Yes - My Orders Last 24 Hours: My Active Orders 12/17/18 23:00 Azithromycin [Zithromax] 500 mg Sodium Chloride 0.9% [Normal Saline] 250 ml IV Q24H 12/17/18 23:02 Patient Status [ADT] Routine Oxygen Therapy [RC] .PRN Up ad Buffy [RC] ASDIRECTED VTE/DVT Education [RC] PER UNIT ROUTINE Vital Signs [RC] 00,04,08,12,16,20 Acetaminophen [Tylenol] 650 mg PO Q4H PRN Ondansetron [Zofran] 4 mg IVPUSH Q6H PRN Resuscitation Status Routine 12/17/18 23:04 Intake and Output [RC] QSHIFT 12/17/18 23:06 Albuterol [Proventil HFA] 0 gm INH BID PRN 12/17/18 23:11 Benzonatate [Tessalon Perles] 100 mg PO TID PRN 12/17/18 23:15 Sodium Chloride 0.9% [Normal Saline] 1,000 ml IV ASDIRECTED 12/17/18 23:20 LORazepam [Ativan] 0.5 mg PO Q6H PRN 12/17/18 23:45 CULTURE SPUTUM + SMEAR [RM] Routine 12/17/18 23:56 Acetaminophen/HYDROcodone [[place] 325-5 MG] 1 tab PO Q6H PRN 12/18/18 00:00 cefTRIAXone [Rocephin] 1 gm Sodium Chloride 0.9% [Normal Saline] 50 ml IV Q24H 12/18/18 06:00 Heparin Sodium 5,000 units SUBCUT Q8HR Levothyroxine [Synthroid] 100 mcg PO ACBREAKFAST Omeprazole 20 mg PO ACBREAKFAST 12/18/18 07:00 Budesonide [Pulmicort] 0.5 mg NEB BIDRT 12/18/18 09:00 Lisinopril [Prinivil] 20 mg PO DAILY 12/18/18 18:00 Calcium Carbonate/Vitamin D3 [Calcium Carbonate/Vitamin D 1250 MG-200 Unit] 1 tab PO WITHDINNER - Plan Plan:: #. Possible pneumonia Patient has been coughing. White cell count is elevated and chest x-ray showed bibasilar density mole on the left compared to the right. Intravenous ceftriaxone Intravenous azithromycin . #. Hyponatremia likely likely due to intractable nausea and vomiting Continue intravenous fluids. #. Hypertension Blood pressure is within acceptable limits #. Hypokalemia next and serum potassium is low down to 3.4 This is as a result of gastrointestinal loss. Patient has also been on metolazone Send sample for repeat visit metabolic panel #. Chronic medical illnesses: Depression, gastric surgery reflux disease, asthma Continue regular medications for these
[2018-12-18] MEDS: Calcium Carbonate/Vitamin D3 1250 MG-200 Unit Tab PO SCH (18:15)
[2018-12-18] MEDS: Codeine/guaiFENesin 100-10 MG/5 ML Syrup 5 ML Cup PO PRN (20:51)
[2018-12-19] MEDS: cefTRIAXone 1 GM in Sodium Chloride 0.9% 50 ML IV SCH ×2 (00:25→23:55)
[2018-12-19] MEDS: Sodium Chloride 0.9% 1,000 ML IV SCH (03:25)
[2018-12-19] MEDS: Acetaminophen 325 MG Tab PO PRN (04:07)
[2018-12-19] MEDS: Omeprazole 20 MG Cap.CR PO SCH (05:42)
[2018-12-19] MEDS: Heparin Sodium 5,000 Units/ML Vial SUBCUT SCH ×3 (05:42→22:38)
[2018-12-19] MEDS: Levothyroxine 100 MCG Tab PO SCH (05:42)
[2018-12-19] MEDS: Budesonide 0.5 MG/2 ML Neb Susp NEB SCH ×2 (07:47→17:00)
[2018-12-19] MEDS ORDERED: Albuterol 0.083% 2.5 MG/3 ML Neb Soln NEB PRN (09:08)
[2018-12-19] MEDS ORDERED: Benzonatate 100 MG Cap PO PRN (09:09)
[2018-12-19] MEDS: Lisinopril 20 MG Tab PO SCH (09:20)
[2018-12-19] MEDS: Acetaminophen/HYDROcodone 325-5 MG Tab PO PRN ×2 (09:21→22:52)
--- NOTE | 2018-12-19 09:25 | PCM.PN ---
- General Info Date of Service: 12/19/18 Subjective Update: The patient is complaining of coughing. The cough has worsened since onset She also has associated wheezing and some shortness of breath. No longer vomiting. Appetite is suboptimal but improving. Denies having chest pain. No headache and no bladder physician. She is still weak - Review of Systems General: Reports: Weakness Pulmonary: Reports: Cough, Wheezing Cardiovascular: Reports: No Symptoms Gastrointestinal: Reports: No Symptoms, Abdominal Pain, Other (Abdomen obtained from cramping and coughing) - Patient Data Vitals - Most Recent: Last Vital Signs Temp 36.1 C 12/19/18 08:00 Pulse 73 12/19/18 08:00 Resp 18 12/19/18 08:00 BP 155/52 H 12/19/18 08:00 Pulse Ox 98 12/19/18 08:00 Weight - Most Recent: 80.739 kg I&O - Last 24 Hours: Intake & Output 12/18/18 12/19/18 12/19/18 22:59 06:59 14:59 Intake Total 1600 1752 Output Total 800 780 Balance 800 972 Crescencio Results Last 24 Hours: Microbiology 12/17/18 23:45 Gram Stain - Final Sputum - Expectorated Sputum Culture - Preliminary Normal Nancy 12/17/18 21:47 Aerobic Blood Culture - Preliminary Blood NO GROWTH AFTER 1 DAY Anaerobic Blood Culture - Preliminary NO GROWTH AFTER 1 DAY 12/17/18 20:19 Aerobic Blood Culture - Preliminary Blood NO GROWTH AFTER 1 DAY Anaerobic Blood Culture - Preliminary NO GROWTH AFTER 1 DAY Med Orders - Current: Current Medications Acetaminophen (Tylenol) 650 mg PO Q4H PRN PRN Reason: Pain (Mild 1-3)/fever Last Admin: 12/19/18 04:07 Dose: 650 mg Hydrocodone Bitart/Acetaminophen ([place] 325-5 Mg) 1 tab PO Q6H PRN PRN Reason: Pain Last Admin: 12/18/18 23:08 Dose: 1 tab Albuterol (Proventil Hfa) 0 gm INH BID PRN PRN Reason: Shortness of Breath Albuterol (Proventil Neb Soln) 2.5 mg NEB Q4H PRN PRN Reason: Shortness of Breath Albuterol/Ipratropium (Duoneb 3.0-0.5 Mg/3 Ml) 3 ml NEB QIDRT CARLA Benzonatate (Tessalon Richardes) 100 mg PO TID PRN PRN Reason: Cough Benzonatate (Tessalon Perles) 100 mg PO QID PRN PRN Reason: Cough Budesonide (Pulmicort) 0.5 mg NEB BIDRT [facility] Last Admin: 12/19/18 07:47 Dose: 0.5 mg Calcium Carbonate (Calcium Carbonate/Vitamin D 1250 Mg-200 Unit) 1 tab PO WITHDINNER [facility] Last Admin: 12/18/18 18:15 Dose: 1 tab Guaifenesin/Codeine Phosphate (Robitussin Ac) 5 ml PO Q6H PRN PRN Reason: Cough Last Admin: 12/18/18 20:51 Dose: 5 ml Heparin Sodium (Porcine) (Heparin Sodium) 5,000 units SUBCUT Q8HR [facility] Last Admin: 12/19/18 05:42 Dose: 5,000 units Sodium Chloride (Normal Saline) 1,000 mls @ 125 mls/hr IV ASDIRECTED [facility] Last Admin: 12/19/18 03:25 Dose: 125 mls/hr Azithromycin 500 mg/ Sodium (Chloride) 250 mls @ 250 mls/hr IV Q24H [facility] Last Infusion: 12/19/18 00:09 Dose: Infused Ceftriaxone Sodium 1 gm/ (Sodium Chloride) 50 mls @ 100 mls/hr IV Q24H [facility] Last Admin: 12/19/18 00:25 Dose: 100 mls/hr Levothyroxine Sodium (Synthroid) 100 mcg PO ACBREAKFAST [facility] Last Admin: 12/19/18 05:42 Dose: 100 mcg Lisinopril (Prinivil) 20 mg PO DAILY [facility] Last Admin: 12/18/18 08:50 Dose: 20 mg Lorazepam (Ativan) 0.5 mg PO Q6H PRN PRN Reason: Anxiety Last Admin: 12/18/18 00:29 Dose: 0.5 mg Omeprazole (Omeprazole) 20 mg PO ACBREAKFAST [facility] Last Admin: 12/19/18 05:42 Dose: 20 mg Ondansetron HCl (Zofran) 4 mg IVPUSH Q6H PRN PRN Reason: Nausea/Vomiting Last Admin: 12/18/18 00:18 Dose: 4 mg Polyethylene Glycol (Miralax) 17 gm PO BEDTIME [facility] Discontinued Medications Albuterol/Ipratropium (Duoneb 3.0-0.5 Mg/3 Ml) 3 ml NEB ONETIME ONE Stop: 12/17/18 21:00 Last Admin: 12/17/18 21:06 Dose: 3 ml Sodium Chloride (Normal Saline) 1,000 mls @ 999 mls/hr IV .BOLUS ONE Stop: 12/17/18 21:15 Last Infusion: 12/17/18 21:03 Dose: 125 mls/hr Potassium Chloride 20 meq/ (Premix) 100 mls @ 50 mls/hr IV ONETIME ONE Stop: 12/18/18 00:59 Last Admin: 12/18/18 01:55 Dose: 50 mls/hr Non-Formulary Medication (Acetaminophen/Hydrocodone [[place] 325-7.5 Mg]) 1 tab PO Q6H PRN PRN Reason: Pain Ondansetron HCl (Zofran) 4 mg IV ONETIME ONE Stop: 12/17/18 20:16 Last Admin: 12/17/18 20:30 Dose: 4 mg - Exam General: Alert, Oriented HEENT: Pupils Equal, Pupils Reactive, EOMI, Mucous Membr. Moist/[place] Lungs: Clear to Auscultation, Normal Respiratory Effort Cardiovascular: Regular Rate, Regular Rhythm GI/Abdominal Exam: Normal Bowel Sounds, Soft, Non-Tender, No Organomegaly, No Distention, No Abnormal Bruit, No Mass, Pelvis Stable - Problem List Review Problem List Initiated/Reviewed/Updated: Yes - My Orders Last 24 Hours: My Active Orders 12/18/18 09:00 Lisinopril [Prinivil] 20 mg PO DAILY 12/18/18 18:00 Calcium Carbonate/Vitamin D3 [Calcium Carbonate/Vitamin D 1250 MG-200 Unit] 1 tab PO WITHDINNER 12/18/18 19:45 Codeine/guaiFENesin [Robitussin AC] 5 ml PO Q6H PRN 12/19/18 08:14 B-TYPE NATRIURETIC PEPTIDE,BNP [CHEM] Routine BASIC METABOLIC PANEL,BMP [CHEM] Routine 12/19/18 09:08 RT Aerosol Therapy [RC] ASDIRECTED Albuterol [Proventil Neb Soln] 2.5 mg NEB Q4H PRN 12/19/18 09:09 Benzonatate [Tessalon Perles] 100 mg PO QID PRN 12/19/18 09:10 Flutter Valve Therapy [RT Chest Physiotherapy] [RC] ASDIRECTED 12/19/18 11:00 Albuterol/Ipratropium [DuoNeb 3.0-0.5 MG/3 ML] 3 ml NEB QIDRT 12/19/18 21:00 Polyethylene Glycol 3350 [MiraLAX] 17 gm PO BEDTIME - Plan Plan:: #. Possible pneumonia Patient has been coughing. White cell count is elevated and chest x-ray showed bibasilar density on the left compared to the right. Continue antibiotics . #. Hyponatremia likely likely due to intractable nausea and vomiting Obtain basic metabolic panel We will stop intravenous fluid if sodium goes above 130 #. Hypertension Blood pressure is within acceptable limits #. Hypokalemia This is as a result of gastrointestinal loss. Metolazone is on hold Repeat basic metabolic panel #. Chronic medical illnesses: Depression, gastric surgery reflux disease, asthma Continue regular medications for these
[2018-12-19 09:47] LABS: ANION GAP 14.2; CHLORIDE,CL 98 mmol/L (101-111); SODIUM,NA 132 mmol/L (135-145)
[2018-12-19] MEDS ORDERED: Potassium Chloride 10 MEQ Tab.ER PO ONE (09:51)
[2018-12-19] MEDS: Albuterol/Ipratropium 3.0-0.5 MG/3 ML Neb Soln NEB SCH ×3 (10:43→20:41)
[2018-12-19] MEDS: Calcium Carbonate/Vitamin D3 1250 MG-200 Unit Tab PO SCH (17:50)
[2018-12-19] MEDS: Polyethylene Glycol 3350 Powder 17 GM Packet PO SCH (20:42)
[2018-12-19] MEDS: Azithromycin 500 MG in Sodium Chloride 0.9% 250 ML IV SCH (22:40)
[2018-12-20] MEDS: LORazepam 0.5 MG Tab PO PRN (00:01)
[2018-12-20] MEDS: Acetaminophen/HYDROcodone 325-5 MG Tab PO PRN ×2 (05:47→20:36)
[2018-12-20] MEDS: Omeprazole 20 MG Cap.CR PO SCH (05:48)
[2018-12-20] MEDS: Levothyroxine 100 MCG Tab PO SCH (05:48)
[2018-12-20] MEDS: Heparin Sodium 5,000 Units/ML Vial SUBCUT SCH ×3 (05:50→21:14)
[2018-12-20] MEDS: Budesonide 0.5 MG/2 ML Neb Susp NEB SCH ×2 (07:16→17:00)
[2018-12-20] MEDS: Albuterol/Ipratropium 3.0-0.5 MG/3 ML Neb Soln NEB SCH ×4 (07:16→20:30)
[2018-12-20 07:20] LABS: ANION GAP 13.9; CHLORIDE,CL 97 mmol/L (101-111); SODIUM,NA 135 mmol/L (135-145)
[2018-12-20] MEDS: Lisinopril 20 MG Tab PO SCH (08:39)
--- NOTE | 2018-12-20 10:48 | PCM.PN ---
- General Info Date of Service: 12/20/18 Subjective Update: Patient offers no new complaints today, Still has some cough. Intensity has improved Tessalon Kenny's is helping No nausea and no vomiting. Has not vomited since admission. - Review of Systems General: Reports: Weakness HEENT: Reports: No Symptoms Pulmonary: Reports: Cough Cardiovascular: Reports: No Symptoms Gastrointestinal: Reports: No Symptoms Genitourinary: Reports: No Symptoms - Patient Data Vitals - Most Recent: Last Vital Signs Temp 36.3 C 12/20/18 07:56 Pulse 83 12/20/18 07:56 Resp 18 12/20/18 07:56 BP 121/64 12/20/18 08:39 Pulse Ox 98 12/20/18 07:56 Weight - Most Recent: 80.739 kg I&O - Last 24 Hours: Intake & Output 12/19/18 12/20/18 12/20/18 22:59 06:59 14:59 Intake Total 100 844 350 Output Total 350 Balance 100 494 350 Lab Results Last 24 Hours: Laboratory Results - last 24 hr 12/20/18 Range/Units 06:10 Sodium 135 (135-145) mmol/L Potassium 3.9 (3.6-5.0) mmol/L Chloride 97 L (101-111) mmol/L Carbon Dioxide 28.0 (21.0-31.0) mmol/L Anion Gap 13.9 BUN 12 (7-18) mg/dL Creatinine 0.8 (0.6-1.3) mg/dL Est Cr Clr Drug Dosing 43.62 mL/min Estimated GFR (MDRD) > 60 Glucose 163 H (74-105) mg/dL Calcium 9.0 (8.4-10.2) mg/dl Crescencio Results Last 24 Hours: Microbiology 12/17/18 23:45 Gram Stain - Final Sputum - Expectorated Sputum Culture - Final YEAST 12/17/18 21:47 Aerobic Blood Culture - Preliminary Blood NO GROWTH AFTER 2 DAYS Anaerobic Blood Culture - Preliminary NO GROWTH AFTER 2 DAYS 12/17/18 20:19 Aerobic Blood Culture - Preliminary Blood NO GROWTH AFTER 2 DAYS Anaerobic Blood Culture - Preliminary NO GROWTH AFTER 2 DAYS Med Orders - Current: Current Medications Acetaminophen (Tylenol) 650 mg PO Q4H PRN PRN Reason: Pain (Mild 1-3)/fever Last Admin: 12/19/18 04:07 Dose: 650 mg Hydrocodone Bitart/Acetaminophen ([place] 325-5 Mg) 1 tab PO Q6H PRN PRN Reason: Pain Last Admin: 12/20/18 05:47 Dose: 1 tab Albuterol (Proventil Hfa) 0 gm INH BID PRN PRN Reason: Shortness of Breath Albuterol (Proventil Neb Soln) 2.5 mg NEB Q4H PRN PRN Reason: Shortness of Breath Albuterol/Ipratropium (Duoneb 3.0-0.5 Mg/3 Ml) 3 ml NEB QIDRT [facility] Last Admin: 12/20/18 07:16 Dose: 3 ml Benzonatate (Tessalon Perles) 100 mg PO QID PRN PRN Reason: Cough Last Admin: 12/19/18 09:20 Dose: 100 mg Budesonide (Pulmicort) 0.5 mg NEB BIDRT [facility] Last Admin: 12/20/18 07:16 Dose: 0.5 mg Calcium Carbonate (Calcium Carbonate/Vitamin D 1250 Mg-200 Unit) 1 tab PO WITHDINNER [facility] Last Admin: 12/19/18 17:50 Dose: 1 tab Guaifenesin/Codeine Phosphate (Robitussin Ac) 5 ml PO Q6H PRN PRN Reason: Cough Last Admin: 12/18/18 20:51 Dose: 5 ml Heparin Sodium (Porcine) (Heparin Sodium) 5,000 units SUBCUT Q8HR [facility] Last Admin: 12/20/18 05:50 Dose: 5,000 units Azithromycin 500 mg/ Sodium (Chloride) 250 mls @ 250 mls/hr IV Q24H [facility] Last Admin: 12/19/18 22:40 Dose: 250 mls/hr Ceftriaxone Sodium 1 gm/ (Sodium Chloride) 50 mls @ 100 mls/hr IV Q24H [facility] Last Admin: 12/19/18 23:55 Dose: 100 mls/hr Levothyroxine Sodium (Synthroid) 100 mcg PO ACBREAKFAST [facility] Last Admin: 12/20/18 05:48 Dose: 100 mcg Lisinopril (Prinivil) 20 mg PO DAILY [facility] Last Admin: 12/20/18 08:39 Dose: 20 mg Lorazepam (Ativan) 0.5 mg PO Q6H PRN PRN Reason: Anxiety Last Admin: 12/20/18 00:01 Dose: 0.5 mg Omeprazole (Omeprazole) 20 mg PO ACBREAKFAST [facility] Last Admin: 12/20/18 05:48 Dose: 20 mg Ondansetron HCl (Zofran) 4 mg IVPUSH Q6H PRN PRN Reason: Nausea/Vomiting Last Admin: 12/18/18 00:18 Dose: 4 mg Polyethylene Glycol (Miralax) 17 gm PO BEDTIME [facility] Last Admin: 12/19/18 20:42 Dose: Not Given Discontinued Medications Albuterol/Ipratropium (Duoneb 3.0-0.5 Mg/3 Ml) 3 ml NEB ONETIME ONE Stop: 12/17/18 21:00 Last Admin: 12/17/18 21:06 Dose: 3 ml Benzonatate (Tessalon Perles) 100 mg PO TID PRN PRN Reason: Cough Sodium Chloride (Normal Saline) 1,000 mls @ 999 mls/hr IV .BOLUS ONE Stop: 12/17/18 21:15 Last Infusion: 12/17/18 21:03 Dose: 125 mls/hr Sodium Chloride (Normal Saline) 1,000 mls @ 125 mls/hr IV ASDIRECTED [facility] Last Infusion: 12/19/18 08:31 Dose: 75 mls/hr Potassium Chloride 20 meq/ (Premix) 100 mls @ 50 mls/hr IV ONETIME ONE Stop: 12/18/18 00:59 Last Admin: 12/18/18 01:55 Dose: 50 mls/hr Non-Formulary Medication (Acetaminophen/Hydrocodone [[place] 325-7.5 Mg]) 1 tab PO Q6H PRN PRN Reason: Pain Ondansetron HCl (Zofran) 4 mg IV ONETIME ONE Stop: 12/17/18 20:16 Last Admin: 12/17/18 20:30 Dose: 4 mg Potassium Chloride (Klor-Con 10) 40 meq PO ONETIME ONE Stop: 12/19/18 09:52 Last Admin: 12/19/18 10:42 Dose: 40 meq - Exam General: Alert, Oriented, Cooperative HEENT: Pupils Equal, Pupils Reactive, EOMI, Mucous Membr. Moist/[place] Neck: Supple Lungs: Decreased Breath Sounds Cardiovascular: Regular Rate, Regular Rhythm GI/Abdominal Exam: Normal Bowel Sounds, Soft, Non-Tender, No Organomegaly, No Distention, No Abnormal Bruit, No Mass, Pelvis Stable - Problem List Review Problem List Initiated/Reviewed/Updated: Yes - My Orders Last 24 Hours: My Active Orders 12/19/18 11:00 Albuterol/Ipratropium [DuoNeb 3.0-0.5 MG/3 ML] 3 ml NEB QIDRT 12/19/18 14:04 Incentive Spirometry [RT Incentive Spirometry] [RC] ASDIRECTED 12/19/18 21:00 Polyethylene Glycol 3350 [MiraLAX] 17 gm PO BEDTIME - Plan Plan:: #. Probable community-acquired pneumonia Patient has been coughing. White cell count is elevated and chest x-ray showed bibasilar density on the left compared to the right. Continue antibiotics . #. Hyponatremia likely likely due to intractable nausea and vomiting Resolved #. Hypertension Blood pressure is within acceptable limits #. Hypokalemia This is as a result of gastrointestinal loss. Metolazone is on hold Resolved #. Chronic medical illnesses: Depression, gastric surgery reflux disease, asthma Continue regular medications for these
[2018-12-20] MEDS: Calcium Carbonate/Vitamin D3 1250 MG-200 Unit Tab PO SCH (18:19)
[2018-12-20] MEDS: Polyethylene Glycol 3350 Powder 17 GM Packet PO SCH (20:32)
[2018-12-20] MEDS: Sodium Chloride 0.9% 10 ML Syringe FLUSH PRN ×2 (21:17→22:31)
[2018-12-20] MEDS: Codeine/guaiFENesin 100-10 MG/5 ML Syrup 5 ML Cup PO PRN (22:16)
[2018-12-20] MEDS: Azithromycin 500 MG in Sodium Chloride 0.9% 250 ML IV SCH (22:36)
[2018-12-21] MEDS: Sodium Chloride 0.9% 10 ML Syringe FLUSH PRN ×2 (00:09→00:41)
[2018-12-21] MEDS: cefTRIAXone 1 GM in Sodium Chloride 0.9% 50 ML IV SCH (00:09)
[2018-12-21] MEDS: LORazepam 0.5 MG Tab PO PRN (00:12)
[2018-12-21] MEDS: Heparin Sodium 5,000 Units/ML Vial SUBCUT SCH (05:57)
[2018-12-21] MEDS: Levothyroxine 100 MCG Tab PO SCH (05:57)
[2018-12-21] MEDS: Omeprazole 20 MG Cap.CR PO SCH (05:57)
[2018-12-21] MEDS: Acetaminophen/HYDROcodone 325-5 MG Tab PO PRN (06:52)
[2018-12-21] MEDS: Budesonide 0.5 MG/2 ML Neb Susp NEB SCH (07:14)
[2018-12-21] MEDS: Albuterol/Ipratropium 3.0-0.5 MG/3 ML Neb Soln NEB SCH ×2 (07:14→12:32)
[2018-12-21] MEDS: Lisinopril 20 MG Tab PO SCH (08:54)
[2018-12-21 08:55] VITALS: BP 149/53
--- NOTE | 2018-12-21 10:35 | PCM.DCSUM1 ---
Discharge Summary - Hospital Course Free Text/Narrative:: The patient is an 83-year-old female with medical history of hypertension, gastroesophageal reflux disease, depression, asthma. The patient presented with complaint of cough and sore throats whic has been going on for one week. Symptoms has worsened over time. The patient was seen multiple times by Nurse practitioners in the clinic/ER. Initially she was given nitrofurantoin for bladder infection. Later on antibiotics were changed. She has had multiple antibiotics including Bactrim, levofloxacin, and most recently doxycycline. She was told that she has pneumonia and also had urinary tract infection. With the last antibiotics, the patient started having intractable nausea and vomiting. Has vomited multiple times and not able to keep food down. Because of that she presented to the emergency room. The patient had x-ray does suggested possible pneumonia. She was started on intravenous Rocephin and azithromycin. Her symptoms has improved and the patient is feeling better. She'll be discharged home #. Probable community-acquired pneumonia White cell count was elevated and chest x-ray showed bibasilar density on the left compared to the right. Continue antibiotics . #. Hyponatremia likely likely due to intractable nausea and vomiting Resolved #. Hypertension Blood pressure is within acceptable limits #. Hypokalemia This is as a result of gastrointestinal loss. Discontinue metolazone. Obtain repeat basic metabolic panel in the clinic #. Chronic medical illnesses: Depression, gastric surgery reflux disease, asthma Continue regular medications for these Diagnosis: Stroke: No - Discharge Data Discharge Date: 12/21/18 Discharge Disposition: Home, Self-Care 01 Condition: Fair - Patient Instructions Diet: Usual Diet as Tolerated Activity: As Tolerated - Discharge Plan Prescriptions/Med Rec: Cefpodoxime [Vantin] 200 mg PO BID 7 Days #14 tab Home Medications: Home Meds Acetaminophen/HYDROcodone [Seltzer 325-7.5 MG] 1 tab PO Q6HR PRN 05/04/14 [History ] Budesonide [Pulmicort] 0.5 mg NEB BID 05/04/14 [History] LORazepam [Ativan] 0.5 mg PO Q6H PRN 05/04/14 [History] Omeprazole 20 mg PO ACBREAKFAST 05/04/14 [History] Potassium Chloride 20 meq PO DAILY 05/04/14 [History] Albuterol [Proair HFA] 2 puff INH BID PRN 05/22/14 [History] Calcium Carb & Citrate/Vit D3 [Calcium + D3 ER Tablet] 2 tab PO WITHDINNER 05/22 [History] Lisinopril [Prinivil] 20 mg PO DAILY 05/22/14 [History] Pravastatin [Pravachol] 20 mg PO DAILY 05/22/14 [History] Doxycycline Hyclate 100 mg PO BID 12/17/18 [History] Levothyroxine [Synthroid] 100 mcg PO ACBREAKFAST 12/17/18 [History] Cefpodoxime [Vantin] 200 mg PO BID 7 Days #14 tab 12/21/18 [Rx] Referrals: Marta Crowley PA [Primary Care Provider] - - Discharge Summary/Plan Comment DC Time >30 min.: No - Review of Systems General: Reports: Weakness Pulmonary: Reports: No Symptoms, Cough Cardiovascular: Reports: No Symptoms - Patient Data Vitals - Most Recent: Last Vital Signs Temp 36.4 C 12/21/18 08:00 Pulse 72 12/21/18 08:00 Resp 18 12/21/18 08:00 BP 149/53 H 12/21/18 08:54 Pulse Ox 100 12/21/18 08:00 Weight - Most Recent: 80.739 kg I&O - Last 24 hours: Intake & Output 12/20/18 12/21/18 12/21/18 22:59 06:59 14:59 Intake Total 400 693 Balance 400 693 MARY Results - Last 24 hrs: Microbiology 12/17/18 21:47 Aerobic Blood Culture - Preliminary Blood NO GROWTH AFTER 3 DAYS Anaerobic Blood Culture - Preliminary NO GROWTH AFTER 3 DAYS 12/17/18 20:19 Aerobic Blood Culture - Preliminary Blood NO GROWTH AFTER 3 DAYS Anaerobic Blood Culture - Preliminary NO GROWTH AFTER 3 DAYS 12/17/18 23:45 Gram Stain - Final Sputum - Expectorated Sputum Culture - Final YEAST Med Orders - Current: Current Medications Acetaminophen (Tylenol) 650 mg PO Q4H PRN PRN Reason: Pain (Mild 1-3)/fever Last Admin: 12/19/18 04:07 Dose: 650 mg Hydrocodone Bitart/Acetaminophen (Seltzer 325-5 Mg) 1 tab PO Q6H PRN PRN Reason: Pain Last Admin: 12/21/18 06:52 Dose: 1 tab Albuterol (Proventil Hfa) 0 gm INH BID PRN PRN Reason: Shortness of Breath Albuterol (Proventil Neb Soln) 2.5 mg NEB Q4H PRN PRN Reason: Shortness of Breath Albuterol/Ipratropium (Duoneb 3.0-0.5 Mg/3 Ml) 3 ml NEB QIDRT [facility] Last Admin: 12/21/18 07:14 Dose: 3 ml Benzonatate (Tessalon Perles) 100 mg PO QID PRN PRN Reason: Cough Last Admin: 12/19/18 09:20 Dose: 100 mg Budesonide (Pulmicort) 0.5 mg NEB BIDRT [facility] Last Admin: 12/21/18 07:14 Dose: 0.5 mg Calcium Carbonate (Calcium Carbonate/Vitamin D 1250 Mg-200 Unit) 1 tab PO WITHDINNER [facility] Last Admin: 12/20/18 18:19 Dose: 1 tab Guaifenesin/Codeine Phosphate (Robitussin Ac) 5 ml PO Q6H PRN PRN Reason: Cough Last Admin: 12/20/18 22:16 Dose: 5 ml Heparin Sodium (Porcine) (Heparin Sodium) 5,000 units SUBCUT Q8HR [facility] Last Admin: 12/21/18 05:57 Dose: 5,000 units Azithromycin 500 mg/ Sodium (Chloride) 250 mls @ 250 mls/hr IV Q24H [facility] Last Infusion: 12/21/18 00:08 Dose: Infused Ceftriaxone Sodium 1 gm/ (Sodium Chloride) 50 mls @ 100 mls/hr IV Q24H [facility] Last Admin: 12/21/18 00:09 Dose: 100 mls/hr Levothyroxine Sodium (Synthroid) 100 mcg PO ACBREAKFAST [facility] Last Admin: 12/21/18 05:57 Dose: 100 mcg Lisinopril (Prinivil) 20 mg PO DAILY [facility] Last Admin: 12/21/18 08:54 Dose: 20 mg Lorazepam (Ativan) 0.5 mg PO Q6H PRN PRN Reason: Anxiety Last Admin: 12/21/18 00:12 Dose: 0.5 mg Omeprazole (Omeprazole) 20 mg PO ACBREAKFAST [facility] Last Admin: 12/21/18 05:57 Dose: 20 mg Ondansetron HCl (Zofran) 4 mg IVPUSH Q6H PRN PRN Reason: Nausea/Vomiting Last Admin: 12/18/18 00:18 Dose: 4 mg Polyethylene Glycol (Miralax) 17 gm PO BEDTIME [facility] Last Admin: 12/20/18 20:32 Dose: Not Given Sodium Chloride (Saline Flush) 10 ml FLUSH ASDIRECTED PRN PRN Reason: Keep Vein Open Last Admin: 12/21/18 00:41 Dose: 10 ml Discontinued Medications Albuterol/Ipratropium (Duoneb 3.0-0.5 Mg/3 Ml) 3 ml NEB ONETIME ONE Stop: 12/17/18 21:00 Last Admin: 12/17/18 21:06 Dose: 3 ml Benzonatate (Tessalon Perles) 100 mg PO TID PRN PRN Reason: Cough Sodium Chloride (Normal Saline) 1,000 mls @ 999 mls/hr IV .BOLUS ONE Stop: 12/17/18 21:15 Last Infusion: 12/17/18 21:03 Dose: 125 mls/hr Sodium Chloride (Normal Saline) 1,000 mls @ 125 mls/hr IV ASDIRECTED [facility] Last Infusion: 12/19/18 08:31 Dose: 75 mls/hr Potassium Chloride 20 meq/ (Premix) 100 mls @ 50 mls/hr IV ONETIME ONE Stop: 12/18/18 00:59 Last Admin: 12/18/18 01:55 Dose: 50 mls/hr Non-Formulary Medication (Acetaminophen/Hydrocodone [Seltzer 325-7.5 Mg]) 1 tab PO Q6H PRN PRN Reason: Pain Ondansetron HCl (Zofran) 4 mg IV ONETIME ONE Stop: 12/17/18 20:16 Last Admin: 12/17/18 20:30 Dose: 4 mg Potassium Chloride (Klor-Con 10) 40 meq PO ONETIME ONE Stop: 12/19/18 09:52 Last Admin: 12/19/18 10:42 Dose: 40 meq - Exam General: Reports: Alert, Oriented, Cooperative Neck: Reports: Supple Lungs: Reports: Decreased Breath Sounds Cardiovascular: Reports: Regular Rate, Regular Rhythm GI/Abdominal Exam: Normal Bowel Sounds, Soft, Non-Tender, No Organomegaly, No Distention, No Abnormal Bruit, No Mass, Pelvis Stable
== END 2018-12-21 12:55 | disposition home or self-care (01) | DRG 640 ==
LOC: DL.ED 19:40 → DL.MS 21:55 → UNDOADMIN 22:03
PROVIDERS: ADMIT Hospitalist; ATTEND Hospitalist
DX: E87.1 Hypo-osmolality and hyponatremia (principal); J18.9 Pneumonia, unspecified organism; I10 Essential (primary) hypertension; N39.0 Urinary tract infection, site not specified; R11.2 Nausea with vomiting, unspecified; E87.6 Hypokalemia; F32.9 Major depressive disorder, single episode, unspecified; K21.9 Gastro-esophageal reflux disease without esophagitis; J45.909 Unspecified asthma, uncomplicated; H54.7 Unspecified visual loss; F41.9 Anxiety disorder, unspecified; E66.9 Obesity, unspecified; Z68.30 Body mass index [BMI] 30.0-30.9, adult; Z88.1 Allergy status to other antibiotic agents; Z88.8 Allergy status to other drugs, medicaments and biological substances; Z79.899 Other long term (current) drug therapy; Z90.49 Acquired absence of other specified parts of digestive tract; Z68.32 Body mass index [BMI] 32.0-32.9, adult
CPT/HCPCS: 36415; 71046; 80053; 83605; 85025; 87040 ×2; 94640; 96361; 96374; 99285; J2405; J7030; 80048; 83880; 87070; 87205; 94010; 94667; A9270-GY; J0456; J0696; J1644; J3480; J7050; J7620-GY

== ENCOUNTER 2020-06-18 12:18 | Emergency (ER) | payer MEDICARE, OTHER ==
[2020-06-18] MEDS ORDERED: fentaNYL 100 MCG/2 ML SDV IVPUSH ONE ×2 (12:38→13:14)
[2020-06-18] MEDS ORDERED: Ondansetron 4 MG/2 ML SDV IV ONE (12:38)
[2020-06-18] MEDS ORDERED: Sodium Chloride 0.9% 10 ML Syringe FLUSH PRN (12:38)
--- NOTE | 2020-06-18 12:38 | EDM.PDOC ---
ED HPI GENERAL MEDICAL PROBLEM - General Chief Complaint: Upper Extremity Injury/Pain Stated Complaint: FELL, INJURED RIGHT ARM Time Seen by Provider: 06/18/20 12:37 Source of Information: Reports: Patient, Old Records, RN, RN Notes Reviewed History Limitations: Reports: No Limitations - History of Present Illness INITIAL COMMENTS - FREE TEXT/NARRATIVE: Pt presents to ER with c/o severe right arm sustained from falling into a door frame as she went into a gas station just prior to arrival. Pt also states she got a little scrape on her left knee, but is able to walk and isn't worried about the knee. She denies hitting her head, and denies neck pain. She rates the pain 9/10. Nothing alleviates the pain. Any movement of the right upper extremity aggravates the pain. Onset: Today, Sudden Duration: Constant Location: Reports: Upper Extremity, Right Quality: Reports: Ache Severity: Severe Improves with: Reports: None Worsens with: Reports: Movement Context: Reports: Other (Fall) Associated Symptoms: Reports: No Other Symptoms Right Upper Shoulder Pain Score (Numeric/FACES): 10 - Related Data Allergies Allergy/AdvReac Type Severity Reaction Status Date / Time amoxicillin [Amoxicillin] Allergy Abdominal Verified 06/18/20 12:54 Pain amoxicillin trihydrate Allergy Cannot Verified 06/18/20 12:54 [From Augmentin] Remember fluticasone propionate Allergy Cannot Verified 06/18/20 12:54 [From Flonase] Remember gabapentin Allergy Cannot Verified 06/18/20 12:54 Remember levofloxacin [From Levaquin] Allergy Cannot Verified 06/18/20 12:54 Remember potassium clavulanate Allergy Cannot Verified 06/18/20 12:54 [From Augmentin] Remember pravastatin Allergy Cannot Verified 06/18/20 12:54 Remember rosuvastatin calcium Allergy Cannot Verified 06/18/20 12:54 [From Crestor] Remember Home Meds: Home Meds Acetaminophen/HYDROcodone [[place] 325-7.5 MG] 1 tab PO Q6HR PRN 05/04/14 [History] Budesonide [Pulmicort] 0.5 mg NEB BID 05/04/14 [History] LORazepam [Ativan] 0.5 mg PO Q6H PRN 05/04/14 [History] Omeprazole 20 mg PO ACBREAKFAST 01/15/15 [History] Potassium Chloride 20 meq PO DAILY 05/04/14 [History] Albuterol [Proair HFA] 2 puff INH BID PRN 05/22/14 [History] Calcium Carb, Citrate/Vit D3 [Calcium + D3 ER Tablet] 2 tab PO WITHDINNER 05/22/14 [History] Pravastatin [Pravachol] 20 mg PO DAILY 05/22/14 [History] lisinopriL [Prinivil] 20 mg PO DAILY 05/22/14 [History] Doxycycline Hyclate 100 mg PO BID 12/17/18 [History] Levothyroxine [Synthroid] 100 mcg PO ACBREAKFAST 12/17/18 [History] Cefpodoxime [Vantin] 200 mg PO BID 7 Days #14 tab 12/21/18 [Rx] Past Medical History HEENT History: Reports: Impaired Vision Cardiovascular History: Reports: Hypertension Respiratory History: Reports: Asthma Other Respiratory History: CPAP at HS Gastrointestinal History: Reports: GERD RANGE ECOLOGIST History: Reports: Dysfunctional Uterine Bleeding, Musculoskeletal History: Reports: Other (See Below) Other Musculoskeletal History: nerve pain, ankle pain Psychiatric History: Reports: Anxiety, Depression Endocrine/Metabolic History: Reports: Obesity/BMI 30+ - Infectious Disease History Infectious Disease History: Reports: Shingles - Past Surgical History GI Surgical History: Reports: Appendectomy, Cholecystectomy Social & Family History - Family History Family Medical History: No Pertinent Family History - Caffeine Use Caffeine Use: Reports: Soda - Living Situation & Occupation Living situation: Reports: Occupation: Retired Review of Systems - Review of Systems Review Of Systems: Comprehensive ROS is negative, except as noted in HPI. ED EXAM, GENERAL - Physical Exam Exam: See Below Exam Limited By: No Limitations General Appearance: Alert, WD/WN, No Apparent Distress Eye Exam: Bilateral Eye: Normal Inspection Nose: Normal Inspection, Normal Mucosa, No Blood Throat/Mouth: Normal Lips, Normal Voice, No Airway Compromise Head: Atraumatic, Normocephalic Neck: Normal Inspection, Supple, Non-Tender, Full Range of Motion Respiratory/Chest: No Respiratory Distress, Lungs Clear, Normal Breath Sounds, No Accessory Muscle Use, Chest Non-Tender Cardiovascular: Normal Peripheral Pulses, Regular Rate, Rhythm GI/Abdominal: Normal Bowel Sounds, Soft, Non-Tender Back Exam: Normal Inspection Extremities: No Pedal Edema, Normal Capillary Refill, Arm Pain (Right upper arm with swelling and deformity.), Limited Range of Motion (Rt upper extremity). No: Joint Swelling, Mottled, Pallor, Redness Neurological: Alert, Oriented, No Motor/Sensory Deficits Psychiatric: Normal Mood Skin Exam: Warm, Dry, Intact, Normal Color, No Rash Course - Vital Signs Last Recorded V/S: Last Vital Signs Temp 97.4 F 06/18/20 12:30 Pulse 94 06/18/20 12:30 Resp 20 06/18/20 12:30 BP 176/70 H 06/18/20 12:30 Pulse Ox 96 06/18/20 12:30 - Orders/Labs/Meds Orders: Active Orders 24 hr Category Date Time Status Peripheral IV Care [RC] . DIRECTED Care 06/18/20 12:38 Active Humerus Rt [CR] Stat Exams 06/18/20 12:39 Taken Sodium Chloride 0.9% [Saline Flush] Med 06/18/20 12:38 Active 10 ml FLUSH ASDIRECTED PRN DME for Discharge [COMM] Routine Oth 06/18/20 13:15 Ordered Peripheral IV Insertion Adult [OM.PC] Stat Oth 06/18/20 12:38 Ordered Medication Orders Sodium Chloride (Saline Flush) 10 ml FLUSH ASDIRECTED PRN PRN Reason: Keep Vein Open Last Admin: 06/18/20 12:46 Dose: 10 ml Documented by: TOREY Melara: Medications Generic Name Dose Route Start Last Admin Trade Name Freq PRN Reason Stop Dose Admin Sodium Chloride 10 ml 06/18/20 12:38 06/18/20 12:46 Saline Flush FLUSH 10 ml ASDIRECTED PRN Administration Keep Vein Open Discontinued Medications Generic Name Dose Route Start Last Admin Trade Name Freq PRN Reason Stop Dose Admin Fentanyl 50 mcg 06/18/20 12:38 06/18/20 12:45 Sublimaze IVPUSH 06/18/20 12:39 50 mcg ONETIME ONE Administration Fentanyl 50 mcg 06/18/20 13:14 Sublimaze IVPUSH 06/18/20 13:15 ONETIME ONE Ondansetron HCl 4 mg 06/18/20 12:38 06/18/20 12:46 Zofran IV 06/18/20 12:39 4 mg ONETIME ONE Administration - Radiology Interpretation Free Text/Narrative:: X-ray Rt Humerus: angulated shaft fracture, see Rad. report. - Re-Assessments/Exams Free Text/Narrative Re-Assessment/Exam: 06/18/20 13:[address] Roth via [facility]. He advises a hanging sling, and he will see the pt in clinic tomorrow. Departure - Departure Time of Disposition: 13:16 Disposition: Home, Self-Care 01 Condition: Good Clinical Impression: Closed fracture of right humerus Qualifiers: Encounter type: initial encounter Humerus Location: shaft Fracture morphology: unspecified fracture morphology Qualified Code(s): S42.301A - Unspecified fr acture of shaft of humerus, right arm, initial encounter for closed fracture - Discharge Information *PRESCRIPTION DRUG MONITORING PROGRAM REVIEWED*: No *COPY OF PRESCRIPTION DRUG MONITORING REPORT IN PATIENT HOLLIE: No Instructions: Humerus Fracture Treated With ORIF, Humerus Fracture Treated With Immobilization Forms: ED Department Discharge Additional Instructions: Rx: Hydrocodone Wear sling on right arm. Call [phone] today to schedule the appointment time with Dr. Roth at [facility] in [place] for tomorrow, 06/19/20. Sepsis Event Note (ED) - Focused Exam Vital Signs: Vital Signs Temp Pulse Resp BP Pulse Ox 06/18/20 12:30 97.4 F 94 20 176/70 H 96 - My Orders Last 24 Hours: My Active Orders 06/18/20 12:38 Peripheral IV Care [RC] . DIRECTED Sodium Chloride 0.9% [Saline Flush] 10 ml FLUSH ASDIRECTED PRN Peripheral IV Insertion Adult [OM.PC] Stat 06/18/20 12:39 Humerus Rt [CR] Stat 06/18/20 13:15 DME for Discharge [COMM] Routine - Assessment/Plan Last 24 Hours: My Active Orders 06/18/20 12:38 Peripheral IV Care [RC] . DIRECTED Sodium Chloride 0.9% [Saline Flush] 10 ml FLUSH ASDIRECTED PRN Peripheral IV Insertion Adult [OM.PC] Stat 06/18/20 12:39 Humerus Rt [CR] Stat 06/18/20 13:15 DME for Discharge [COMM] Routine
[2020-06-18 12:54] VITALS: BP 176/70; PULSE 94
--- NOTE | 2020-06-18 13:25 | CR ---
EXAMINATION: Humerus Rt 2 views SEX: Female AGE: 85 years CLINICAL HISTORY: 85-year-old female injured fall (Right upper arm injury w/deformity). INTERPRETATION: Abnormal. 1. Acute, long spiral, mid diaphyseal FRACTURE right humerus. Suggestion of comminution. 2. Impaction and mild curvature deformity. 3. No dislocation ipsilateral right shoulder or elbow. 4. Underlying right hemithorax (ribs and lung) unremarkable. 5. Osteoporosis.
== END 2020-06-18 13:40 | disposition home or self-care (01) ==
LOC: DL.ED 12:18
DX: S42.341A Displaced spiral fracture of shaft of humerus, right arm, initial encounter for closed fracture (principal); J45.909 Unspecified asthma, uncomplicated; I10 Essential (primary) hypertension; K21.9 Gastro-esophageal reflux disease without esophagitis; E66.9 Obesity, unspecified; Z68.32 Body mass index [BMI] 32.0-32.9, adult; Z88.0 Allergy status to penicillin; Z88.8 Allergy status to other drugs, medicaments and biological substances; Z88.1 Allergy status to other antibiotic agents; W22.8XXA Striking against or struck by other objects, initial encounter
CPT/HCPCS: 73060; 96374; 96375; 96376; 99283; 99284; J2405; J3010

== ENCOUNTER 2020-08-20 10:37 | Emergency (ER) | payer MEDICARE, OTHER ==
--- NOTE | 2020-08-20 11:08 | EDM.PDOC ---
ED HPI GENERAL MEDICAL PROBLEM - General Chief Complaint: Cardiovascular Problem Stated Complaint: SWOLLEN LEGS AND DIZZINESS Time Seen by Provider: 08/20/20 11:08 Source of Information: Reports: Patient, Old Records, RN, RN Notes Reviewed History Limitations: Reports: No Limitations - History of Present Illness INITIAL COMMENTS - FREE TEXT/NARRATIVE: Pt presents to ER with c/o three days duration of lower leg edema, dizziness, and mild shortness of breath. Pt denies cough, wheezing, or chest pain. She states that she had similar symptoms in the past that were caused by low potassium/electrolyte abnormalities. Denies "room spin" dizziness, nausea, vomiting, headache, or palpitations. Onset: Gradual Onset Date: 08/17/20 Duration: Waxing/Waning Location: Reports: Generalized Quality: Reports: Other (Denies pain) Severity: Moderate Improves with: Reports: None Worsens with: Reports: None Associated Symptoms: Reports: No Other Symptoms - Related Data Allergies Allergy/AdvReac Type Severity Reaction Status Date / Time amoxicillin [Amoxicillin] Allergy Abdominal Verified 06/18/20 12:54 Pain amoxicillin trihydrate Allergy Cannot Verified 06/18/20 12:54 [From Augmentin] Remember fluticasone propionate Allergy Cannot Verified 06/18/20 12:54 [From Flonase] Remember gabapentin Allergy Cannot Verified 06/18/20 12:54 Remember levofloxacin [From Levaquin] Allergy Cannot Verified 06/18/20 12:54 Remember potassium clavulanate Allergy Cannot Verified 06/18/20 12:54 [From Augmentin] Remember pravastatin Allergy Cannot Verified 06/18/20 12:54 Remember rosuvastatin calcium Allergy Cannot Verified 06/18/20 12:54 [From Crestor] Remember Home Meds: Home Meds Acetaminophen/HYDROcodone [[place] 325-7.5 MG] 1 tab PO Q6HR PRN 05/04/14 [History] Budesonide [Pulmicort] 0.5 mg NEB BID 05/04/14 [History] LORazepam [Ativan] 0.5 mg PO Q6H PRN 05/04/14 [History] Omeprazole 20 mg PO ACBREAKFAST 05/04/14 [History] Potassium Chloride 20 meq PO DAILY 05/04/14 [History] Albuterol [Proair HFA] 2 puff INH BID PRN 05/22/14 [History] Calcium Carb, Citrate/Vit D3 [Calcium + D3 ER Tablet] 2 tab PO WITHDINNER 05/22/14 [History] Pravastatin [Pravachol] 20 mg PO DAILY 05/22/14 [History] lisinopriL [Prinivil] 20 mg PO DAILY 05/22/14 [History] Doxycycline Hyclate 100 mg PO BID 12/17/18 [History] Levothyroxine [Synthroid] 100 mcg PO ACBREAKFAST 12/17/18 [History] Cefpodoxime [Vantin] 200 mg PO BID 7 Days #14 tab 12/21/18 [Rx] Past Medical History HEENT History: Reports: Impaired Vision Cardiovascular History: Reports: Hypertension Respiratory History: Reports: Asthma Other Respiratory History: CPAP at HS Gastrointestinal History: Reports: GERD MANAGER HRIS History: Reports: Dysfunctional Uterine Bleeding, Musculoskeletal History: Reports: Fracture (Rt humerus), Other (See Below) Other Musculoskeletal History: nerve pain, ankle pain Neurological History: Reports: None Psychiatric History: Reports: Anxiety, Depression Endocrine/Metabolic History: Reports: Obesity/BMI 30+ Hematologic History: Reports: None Immunologic History: Reports: None Oncologic (Cancer) History: Reports: None Dermatologic History: Reports: None - Infectious Disease History Infectious Disease History: Reports: Shingles - Past Surgical History HEENT Surgical History: Reports: Cataract Surgery, Naso-Sinus Surgery Cardiovascular Surgical History: Reports: None Respiratory Surgical History: Reports: None GI Surgical History: Reports: Appendectomy, Cholecystectomy Female Surgical History: Reports: Breast Biopsy, Hysterectomy, Salpingo- Oophorectomy, Other (See Below) Other Female Surgeries/Procedures: lumpectomy Endocrine Surgical History: Reports: None Musculoskeletal Surgical History: Reports: Other (See Below) Other Musculoskeletal Surgeries/Procedures:: knee surgery? Social & Family History - Family History Family Medical History: No Pertinent Family History - Caffeine Use Caffeine Use: Reports: None - Living Situation & Occupation Living situation: Reports: Occupation: Retired ED ROS GENERAL - Review of Systems Review Of Systems: Comprehensive ROS is negative, except as noted in HPI. ED EXAM, GENERAL - Physical Exam Exam: See Below Exam Limited By: No Limitations General Appearance: Alert, WD/WN, No Apparent Distress Eye Exam: Bilateral Eye: Normal Inspection (No nystagmus) Ears: Normal External Exam, Normal Canal, Hearing Grossly Normal, Normal TMs Nose: Normal Inspection, Normal Mucosa, No Blood Throat/Mouth: Normal Inspection, Normal Lips, Normal Teeth, Normal Gums, Normal Oropharynx, Normal Voice, No Airway Compromise Head: Atraumatic, Normocephalic Neck: Normal Inspection, Supple, Non-Tender, Full Range of Motion Respiratory/Chest: No Respiratory Distress, Lungs Clear, Normal Breath Sounds, No Accessory Muscle Use, Chest Non-Tender Cardiovascular: Normal Peripheral Pulses, No JVD, Irregularly Irregular GI/Abdominal: Normal Bowel Sounds, Soft, Non-Tender, No Organomegaly, No Distention, No Abnormal Bruit, No Mass Back Exam: Normal Inspection Extremities: Normal Range of Motion, Non-Tender, Pedal Edema (B/L knee high compression stockings) Neurological: Alert, Oriented, CN II-XII Intact, Normal Cognition, No Motor/Sensory Deficits Psychiatric: Normal Affect, Normal Mood Skin Exam: Warm, Dry, Intact, Normal Color, No Rash #1 Interpretation EKG Date: 08/20/20 Time: 11:31 Rhythm: Other (SR with PAC) Rate (Beats/Min): 87 [place]: Normal P-Wave: Present QRS: Normal ST-T: Normal QT: Normal Comparison: NA - No Prior EKG Course - Vital Signs Last Recorded V/S: Last Vital Signs Temp 98.1 F 08/20/20 11:00 Pulse 91 08/20/20 11:00 Resp 16 08/20/20 11:00 BP 171/81 H 08/20/20 11:00 Pulse Ox 99 08/20/20 11:00 - Orders/Labs/Meds Orders: Active Orders 24 hr Category Date Time Status EKG 12 Lead [EKG Documentation Completion] [RC] STAT Care 08/20/20 11:08 Active Peripheral IV Care [RC] . DIRECTED Care 08/20/20 11:09 Active Sodium Chloride 0.9% [Saline Flush] Med 08/20/20 11:09 Active 10 ml FLUSH ASDIRECTED PRN Peripheral IV Insertion Adult [OM.PC] Stat Oth 08/20/20 11:09 Ordered Medication Orders Sodium Chloride (Sodium Chloride 0.9% 10 Ml Syringe) 10 ml FLUSH ASDIRECTED PRN PRN Reason: Keep Vein Open Last Admin: 08/20/20 11:24 Dose: 10 ml Documented by: JHONY Labs: Laboratory Tests 08/20/20 08/20/20 08/20/20 Range/Units 11:18 11:18 11:18 WBC 7.3 (5.0-10.0) 10^3/uL RBC 4.63 (4.2-5.4) 10^6/uL Hgb 13.5 D (12.0-16.0) g/dL Hct 41.0 (37.0-47.0) % MCV 88.6 (80-100) fL MCH 29.2 (27.0-34.0) pg MCHC 32.9 L (33.0-35.0) g/dL Plt Count 269 (150-450) 10^3/uL Neut % (Auto) 58.4 (42.2-75.2) % Lymph % (Auto) 23.9 (20.5-50.1) % Todd % (Auto) 8.4 H (2-8) % Eos % (Auto) 8.9 H (1.0-3.0) % Baso % (Auto) 0.4 (0.0-1.0) % PT 9.7 (9.0-12.0) SEC INR 1.0 (0.9-1.2) APTT 23.6 (22.0-34.0) SEC Sodium 138 (136-145) mmol/L Potassium 3.7 (3.5-5.1) mmol/L Chloride 100 (98-107) mmol/L Carbon Dioxide 28 (21-32) mmol/L Anion Gap 13.7 H (7-13) mEq/L BUN 11 (7-18) mg/dL Creatinine 0.88 (0.55-1.02) mg/dL Est Cr Clr Drug Dosing TNP Estimated GFR (MDRD) > 60 BUN/Creatinine Ratio 12.5 (No establ ref range) Glucose 209 H (70-99) mg/dL Calcium 8.9 (8.5-10.1) mg/dL Magnesium 1.6 L (1.8-2.4) mg/dL Total Bilirubin 0.5 (0.2-1.0) mg/dL AST 17 (15-37) U/L ALT 30 (14-59) U/L Alkaline Phosphatase 77 (46-116) U/L Troponin I < 0.017 (0.000-0.056) ng/mL B-Natriuretic Peptide 77 (0-100) pg/ml Total Protein 7.1 (6.4-8.2) g/dL Albumin 3.7 (3.4-5.0) g/dL Globulin 3.4 Albumin/Globulin Ratio 1.09 TSH, Ultra Sensitive 1.35 (0.36-3.74) uIU/mL Meds: Medications Generic Name Dose Route Start Last Admin Trade Name Freq PRN Reason Stop Dose Admin Sodium Chloride 10 ml 08/20/20 11:09 08/20/20 11:24 Sodium Chloride 0.9% 10 Ml Syringe FLUSH 10 ml ASDIRECTED PRN Administration Keep Vein Open Discontinued Medications Generic Name Dose Route Start Last Admin Trade Name Freq PRN Reason Stop Dose Admin Furosemide 40 mg 08/20/20 12:32 08/20/20 12:49 Furosemide 40 Mg/4 Ml Vial IVPUSH 08/20/20 12:33 40 mg NOW ONE Administration Magnesium Sulfate 2 gm in 50 mls @ 25 mls/hr 08/20/20 12:31 08/20/20 12:51 Magnesium Sulfate In Water 2 Gm/50 Ml IV 08/20/20 14:30 25 mls/hr ONETIME ONE Administration Ondansetron HCl 4 mg 08/20/20 12:32 08/20/20 12:49 Ondansetron 4 Mg/2 Ml Sdv IV 08/20/20 12:33 4 mg ONETIME ONE Administration Potassium Chloride 60 meq 08/20/20 12:31 08/20/20 12:48 Potassium Chloride 10 Meq Tab.Er PO 08/20/20 12:32 60 meq ONETIME ONE Administration - Radiology Interpretation Free Text/Narrative:: [facility] Final Radiology Report Call: [phone] assistance Online chat: [email or web address] Name: KLAUDIA GERBER Age: 85Years F Date: 08/20/2020 SSN: -- : [id number] Study: CR CHEST 1V FRONTAL Requesting Physician: MARTHA REBOLLAR Images: 1 Addl Studies: Provided Clinical History: edema, new onset A-fib Contrast: Contrast Medium: Contrast Amount: Contrast Method: CONFIDENTIALITY STATEMENT This report is intended only for use by the referring physician, and only in accordance with law. If you received this in error, call [phone]. Page 1 of 1 PROCEDURE INFORMATION: Exam: XR Chest Exam date and time: 08/20/2020 11:28 AM Age: 85 years old Clinical indication: Other: Edema, new onset a-fib TECHNIQUE: Imaging protocol: XR of the chest. Views: 1 view. COMPARISON: CR Chest 2V 12/17/2018 9:33 PM FINDINGS: Lungs: There is mild bibasilar interstitial opacity which could reflect early edema. No focal consolidation. Pleural spaces: Unremarkable. No pleural effusion. No pneumothorax. Heart/Mediastinum: The cardiomediastinal silhouette is fairly stable in appearance, with similar cardiomegaly. Bones/joints: There is new hardware partially visualized in the right humerus, with intramedullary bernabe bridging a fracture of the shaft. IMPRESSION: Mild bibasilar interstitial opacity, could reflect early edema. Thank you for allowing us to participate in the care of your patient. Dictated and Authenticated by: Jose Amado MD 08/20/2020 11:48 AM Central Time ([place] & [place]) Departure - Departure Time of Disposition: 15:16 Disposition: Home, Self-Care 01 Condition: Good Clinical Impression: Hypomagnesemia, Premature atrial beats, Peripheral edema Instructions: Hypomagnesemia, Premature Atrial Contraction, Peripheral Edema Forms: ED Department Discharge Additional Instructions: Continue current medications as prescribed. Follow up in clinic later this week for recheck of potassium and magnesium. Sepsis Event Note (ED) - Focused Exam Vital Signs: Vital Signs Temp Pulse Resp BP Pulse Ox 08/20/20 11:00 98.1 F 91 16 171/81 H 99 - My Orders Last 24 Hours: My Active Orders 08/20/20 11:08 EKG 12 Lead [EKG Documentation Completion] [RC] STAT 08/20/20 11:09 Peripheral IV Care [RC] . DIRECTED Sodium Chloride 0.9% [Saline Flush] 10 ml FLUSH ASDIRECTED PRN Peripheral IV Insertion Adult [OM.PC] Stat - Assessment/Plan Last 24 Hours: My Active Orders 08/20/20 11:08 EKG 12 Lead [EKG Documentation Completion] [RC] STAT 08/20/20 11:09 Peripheral IV Care [RC] . DIRECTED Sodium Chloride 0.9% [Saline Flush] 10 ml FLUSH ASDIRECTED PRN Peripheral IV Insertion Adult [OM.PC] Stat
[2020-08-20] MEDS ORDERED: Sodium Chloride 0.9% 10 ML Syringe FLUSH PRN (11:09)
--- NOTE | 2020-08-20 11:48 | CR ---
PROCEDURE INFORMATION: Exam: XR Chest Exam date and time: 08/20/2020 11:28 AM Age: 85 years old Clinical indication: Other: Edema, new onset a-fib TECHNIQUE: Imaging protocol: XR of the chest. Views: 1 view. COMPARISON: CR Chest 2V 12/17/2018 9:33 PM FINDINGS: Lungs: There is mild bibasilar interstitial opacity which could reflect early edema. No focal consolidation. Pleural spaces: Unremarkable. No pleural effusion. No pneumothorax. Heart/Mediastinum: The cardiomediastinal silhouette is fairly stable in appearance, with similar cardiomegaly. Bones/joints: There is new hardware partially visualized in the right humerus, with intramedullary bernabe bridging a fracture of the shaft. IMPRESSION: Mild bibasilar interstitial opacity, could reflect early edema.
[2020-08-20 11:54] LABS: PTT,PARTIAL THROMBOPLSTIN TIME 23.6 SEC (22.0-34.0)
[2020-08-20 12:06] LABS: ANION GAP 13.7 mEq/L (7-13); CHLORIDE,CL 100 mmol/L (98-107); SODIUM,NA 138 mmol/L (136-145)
[2020-08-20] MEDS ORDERED: Magnesium Sulfate/Water 2 GM/50 ML BAG IV ONE (12:31)
[2020-08-20] MEDS ORDERED: Potassium Chloride 10 MEQ Tab.ER PO ONE (12:31)
[2020-08-20] MEDS ORDERED: Furosemide 40 MG/4 ML VIAL IVPUSH ONE (12:32)
[2020-08-20] MEDS ORDERED: Ondansetron 4 MG/2 ML SDV IV ONE (12:32)
[2020-08-20 12:41] VITALS: BP 171/81; PULSE 91
== END 2020-08-20 15:35 | disposition home or self-care (01) ==
LOC: DL.ED 10:37
DX: R60.0 Localized edema (principal); E83.42 Hypomagnesemia; Z88.8 Allergy status to other drugs, medicaments and biological substances; I10 Essential (primary) hypertension; J45.909 Unspecified asthma, uncomplicated; E66.9 Obesity, unspecified; K21.9 Gastro-esophageal reflux disease without esophagitis; I49.1 Atrial premature depolarization; Z88.0 Allergy status to penicillin; Z88.1 Allergy status to other antibiotic agents; Z88.5 Allergy status to narcotic agent; Z68.27 Body mass index [BMI] 27.0-27.9, adult
CPT/HCPCS: 36415; 71045; 80053; 83735; 83880; 84443; 84484; 85025; 85610; 85730; 93005; 93010; 96365; 96366; 96375; 99284; 99284-25; A9270-GY; J1940; J2405; J3475

== ENCOUNTER 2022-08-15 18:14 | Emergency (ER) | payer MEDICARE, OTHER ==
[2022-08-15 18:50] VITALS: BP 158/72; PULSE 98
[2022-08-15] MEDS ORDERED: guaiFENesin/Dextromethorphan 100-10 MG/5 ML Soln 5 ML Cup PO STA (19:17)
[2022-08-15] MEDS ORDERED: predniSONE 20 MG Tab PO ONE (19:17)
[2022-08-15] MEDS ORDERED: Benzonatate 100 MG Cap PO ONE (19:17)
[2022-08-15] MEDS ORDERED: Albuterol 0.083% 2.5 MG/3 ML Neb Soln NEB ONE ×2 (19:23→19:24)
[2022-08-15] MEDS ORDERED: Budesonide 0.5 MG/2 ML Neb Susp NEB ONE (19:23)
[2022-08-15 19:36] LABS: RESPIRATORY SYNCYTIAL VIR NAA NEGATIVE (NEGATIVE)
[2022-08-15 19:49] LABS: CORONAVIRUS COVID-19 NAA POSITIVE (NEGATIVE)
== END 2022-08-15 21:24 | disposition home or self-care (01) ==
LOC: DL.ED 18:14
DX: U07.1 COVID-19 (principal); J20.9 Acute bronchitis, unspecified; K21.9 Gastro-esophageal reflux disease without esophagitis; I10 Essential (primary) hypertension; J45.909 Unspecified asthma, uncomplicated; E66.9 Obesity, unspecified; Z68.31 Body mass index [BMI] 31.0-31.9, adult; Z79.899 Other long term (current) drug therapy; Z88.0 Allergy status to penicillin; Z88.8 Allergy status to other drugs, medicaments and biological substances; Z88.1 Allergy status to other antibiotic agents
CPT/HCPCS: 0241U; 71046; 99285; A9270; J7512; J3490; J7613-GY

== ENCOUNTER 2022-08-24 15:58 | Inpatient (IN) | payer MEDICARE, OTHER ==
[2022-08-24] MEDS ORDERED: Codeine/Promethazine 10-6.25 MG/5 ML Syrup 5 ML UD Cup PO ONE (17:03)
[2022-08-24] MEDS ORDERED: methylPREDNISolone Sodium Succinate 125 MG/2 ML SDV IVPUSH ONE (17:04)
[2022-08-24] MEDS ORDERED: Albuterol/Ipratropium 3.0-0.5 MG/3 ML Neb Soln NEB ONE (17:05)
[2022-08-24] MEDS: Sodium Chloride 0.9% 10 ML Syringe FLUSH PRN ×3 (17:24→20:27)
[2022-08-24 17:50] LABS: HEMATOCRIT 36.5 % (37.0-47.0); HEMOGLOBIN 12.5 g/dL (12.0-16.0); MEAN CORPUSCULAR HEMOGLOBIN 28.9 pg (27.0-34.0); MEAN CORPUSCULAR HGB CONC 34.2 g/dL (33.0-35.0); MEAN CORPUSCULAR VOLUME 84.5 fL (80-100); PLATELET COUNT,PLT 298 10^3/uL (150-450); RED BLOOD CELL COUNT 4.32 10^6/uL (4.2-5.4)
[2022-08-24 18:10] LABS: BILIRUBIN TOTAL 0.5 mg/dL (0.2-1.0); BUN/CREATININE RATIO 14.9 (No establ ref range); CALCIUM 8.7 mg/dL (8.5-10.1); CREATININE 0.87 mg/dL (0.55-1.02); EST CRCL DRUG DOSING (CG) 5.55 mL/min; POTASSIUM,K 3.3 mmol/L (3.5-5.1); PROTEIN TOTAL,TP 7.2 g/dL (6.4-8.2)
[2022-08-24 18:13] LABS: LACTIC ACID 1.1 mmol/L (0.4-2.0)
[2022-08-24 18:15] LABS: A/G RATIO 0.71; ANION GAP 14.3 mEq/L (7-13)
[2022-08-24 18:18] LABS: LYMPHOCYTES PERCENT MAN 11 % (20-50); MONOCYTES PERCENT MAN 3 % (2-8); SEG NEUTROPHILS PERCENT MAN 86 % (42-75)
[2022-08-24] MEDS ORDERED: Iopamidol 755 Mg/ML 100 ML Bottle IVPUSH ONE (18:26)
[2022-08-24] MEDS ORDERED: cefTRIAXone 2 GM Vial IVPUSH ONE (18:42)
[2022-08-24] MEDS ORDERED: Azithromycin 500 MG in Sodium Chloride 0.9% 250 ML IV ONE (18:43)
[2022-08-24] MEDS ORDERED: Sodium Chloride 0.9% 1,000 ML IV ONE (18:44)
[2022-08-24] MEDS ORDERED: Albuterol 6.7 GM Inhaler INH PRN ×2 (21:54→22:12)
[2022-08-24] MEDS ORDERED: Bisacodyl 5 MG Tab PO PRN (22:12)
[2022-08-24] MEDS ORDERED: Ondansetron 4 MG/2 ML SDV IVPUSH PRN (22:12)
[2022-08-24] MEDS ORDERED: Docusate Sodium 100 MG Cap PO PRN (22:12)
[2022-08-24] MEDS ORDERED: Albuterol 0.083% 2.5 MG/3 ML Neb Soln NEB PRN (22:12)
[2022-08-24] MEDS: methylPREDNISolone Sodium Succinate 40 MG/1 ML SDV IVPUSH SCH (22:47)
[2022-08-24] MEDS: Potassium Chloride 10 MEQ Tab.ER PO SCH (22:47)
[2022-08-24] MEDS: Codeine/Promethazine 10-6.25 MG/5 ML Syrup 5 ML UD Cup PO SCH (22:55)
[2022-08-25] MEDS: Codeine/Promethazine 10-6.25 MG/5 ML Syrup 5 ML UD Cup PO SCH ×5 (00:08→23:17)
[2022-08-25] MEDS: Acetaminophen 325 MG Tab PO PRN (00:54)
[2022-08-25] MEDS: Melatonin 3 MG Tab PO PRN ×2 (02:28→23:17)
[2022-08-25] MEDS: Levothyroxine 100 MCG Tab PO SCH (05:44)
[2022-08-25] MEDS: methylPREDNISolone Sodium Succinate 40 MG/1 ML SDV IVPUSH SCH ×4 (05:44→23:10)
[2022-08-25] MEDS: Omeprazole 20 MG Cap.CR PO SCH (05:44)
[2022-08-25 05:48] LABS: HEMATOCRIT 33.5 % (37.0-47.0); HEMOGLOBIN 11.6 g/dL (12.0-16.0); MEAN CORPUSCULAR HGB CONC 34.6 g/dL (33.0-35.0); MEAN CORPUSCULAR VOLUME 83.8 fL (80-100); PLATELET COUNT,PLT 283 10^3/uL (150-450); WHITE BLOOD CELL COUNT,WBC 12.7 10^3/uL (5.0-10.0)
[2022-08-25 05:51] LABS: NEUTROPHILS PERCENT AUTO 93.4 % (42.2-75.2)
[2022-08-25 05:52] LABS: LYMPHOCYTES PERCENT AUTO 4.6 % (20.5-50.1)
[2022-08-25 06:02] LABS: LYMPHOCYTES PERCENT MAN 5 % (20-50); MONOCYTES PERCENT MAN 4 % (2-8); SEG NEUTROPHILS PERCENT MAN 91 % (42-75)
[2022-08-25] MEDS: Azithromycin 250 MG Tab PO SCH (08:25)
[2022-08-25] MEDS: Simvastatin 10 MG Tab PO SCH (08:25)
[2022-08-25] MEDS: amLODIPine 5 MG Tab PO SCH (08:25)
[2022-08-25] MEDS: Lisinopril 20 MG Tab PO SCH (08:25)
[2022-08-25] MEDS: cefTRIAXone 1 GM Vial IVPUSH SCH (08:26)
[2022-08-25] MEDS: Budesonide 0.5 MG/2 ML Neb Susp NEB SCH ×2 (08:26→20:28)
[2022-08-25] MEDS: Enoxaparin 40 MG/0.4 ML Syringe SUBCUT SCH (08:26)
[2022-08-25] MEDS ORDERED: Pravastatin 20 MG Tab PO SCH (09:00)
[2022-08-25 09:49] LABS: ANION GAP 13.8 mEq/L (7-13); CALCIUM 8.2 mg/dL (8.5-10.1); CREATININE 0.79 mg/dL (0.55-1.02); EST CRCL DRUG DOSING (CG) 41.18 mL/min; POTASSIUM,K 3.8 mmol/L (3.5-5.1)
[2022-08-25] MEDS: Carboxymethylcellulose Sodium 1% Ophth Gel 0.4 ML UD EYEBOTH PRN (11:06)
[2022-08-25] MEDS: Potassium Chloride 10 MEQ Tab.ER PO SCH (20:27)
[2022-08-25] MEDS: Sodium Chloride 0.9% 10 ML Syringe FLUSH PRN (23:10)
[2022-08-26] MEDS: Acetaminophen 325 MG Tab PO PRN (00:42)
[2022-08-26] MEDS: Levothyroxine 100 MCG Tab PO SCH (05:27)
[2022-08-26] MEDS: Omeprazole 20 MG Cap.CR PO SCH (05:27)
[2022-08-26] MEDS: Codeine/Promethazine 10-6.25 MG/5 ML Syrup 5 ML UD Cup PO SCH ×4 (05:28→23:07)
[2022-08-26] MEDS: Sodium Chloride 0.9% 10 ML Syringe FLUSH PRN ×2 (05:31→21:44)
[2022-08-26] MEDS: methylPREDNISolone Sodium Succinate 40 MG/1 ML SDV IVPUSH SCH (05:31)
[2022-08-26 06:12] LABS: HEMATOCRIT 33.7 % (37.0-47.0); HEMOGLOBIN 11.5 g/dL (12.0-16.0); MEAN CORPUSCULAR HEMOGLOBIN 28.5 pg (27.0-34.0); MEAN CORPUSCULAR HGB CONC 34.1 g/dL (33.0-35.0); MEAN CORPUSCULAR VOLUME 83.6 fL (80-100); PLATELET COUNT,PLT 329 10^3/uL (150-450); RED BLOOD CELL COUNT 4.03 10^6/uL (4.2-5.4); WHITE BLOOD CELL COUNT,WBC 19.4 10^3/uL (5.0-10.0)
[2022-08-26 06:23] LABS: BASOPHILS PERCENT AUTO 0.1 % (0.0-1.0); LYMPHOCYTES PERCENT AUTO 4.2 % (20.5-50.1); MONOCYTES PERCENT AUTO 4.1 % (2-8); NEUTROPHILS PERCENT AUTO 91.6 % (42.2-75.2)
[2022-08-26 06:26] LABS: ANION GAP 14.6 mEq/L (7-13); CALCIUM 8.4 mg/dL (8.5-10.1); CREATININE 0.74 mg/dL (0.55-1.02); EST CRCL DRUG DOSING (CG) 43.96 mL/min; POTASSIUM,K 3.6 mmol/L (3.5-5.1)
[2022-08-26 06:57] LABS: LYMPHOCYTES PERCENT MAN 3 % (20-50); MONOCYTES PERCENT MAN 1 % (2-8); SEG NEUTROPHILS PERCENT MAN 96 % (42-75)
[2022-08-26] MEDS ORDERED: Potassium Chloride 10 MEQ Tab.ER PO ONE (07:19)
[2022-08-26] MEDS: Lisinopril 20 MG Tab PO SCH (08:17)
[2022-08-26] MEDS: Simvastatin 10 MG Tab PO SCH (08:18)
[2022-08-26] MEDS: amLODIPine 5 MG Tab PO SCH (08:18)
[2022-08-26] MEDS: Azithromycin 250 MG Tab PO SCH (08:18)
[2022-08-26] MEDS: cefTRIAXone 1 GM Vial IVPUSH SCH (08:19)
[2022-08-26] MEDS: Enoxaparin 40 MG/0.4 ML Syringe SUBCUT SCH (08:20)
[2022-08-26] MEDS: Budesonide 0.5 MG/2 ML Neb Susp NEB SCH ×2 (08:57→21:44)
[2022-08-26] MEDS: Carboxymethylcellulose Sodium 1% Ophth Gel 0.4 ML UD EYEBOTH PRN (09:01)
[2022-08-26] MEDS: predniSONE 20 MG Tab PO SCH (09:46)
[2022-08-26] MEDS: Potassium Chloride 10 MEQ Tab.ER PO SCH (21:44)
[2022-08-26] MEDS: Melatonin 3 MG Tab PO PRN (23:07)
[2022-08-27] MEDS: Levothyroxine 100 MCG Tab PO SCH (05:53)
[2022-08-27] MEDS: Codeine/Promethazine 10-6.25 MG/5 ML Syrup 5 ML UD Cup PO SCH (05:53)
[2022-08-27] MEDS: Omeprazole 20 MG Cap.CR PO SCH (05:53)
[2022-08-27 06:03] LABS: HEMATOCRIT 35.4 % (37.0-47.0); HEMOGLOBIN 12.2 g/dL (12.0-16.0); MEAN CORPUSCULAR HGB CONC 34.5 g/dL (33.0-35.0); MEAN CORPUSCULAR VOLUME 84.3 fL (80-100); PLATELET COUNT,PLT 366 10^3/uL (150-450); WHITE BLOOD CELL COUNT,WBC 19.7 10^3/uL (5.0-10.0)
[2022-08-27 06:13] LABS: BASOPHILS PERCENT AUTO 0.1 % (0.0-1.0); MONOCYTES PERCENT AUTO 7.4 % (2-8); NEUTROPHILS PERCENT AUTO 86.5 % (42.2-75.2)
[2022-08-27 06:20] LABS: ANION GAP 13.3 mEq/L (7-13); CALCIUM 8.8 mg/dL (8.5-10.1); CREATININE 0.75 mg/dL (0.55-1.02); EST CRCL DRUG DOSING (CG) 43.37 mL/min; POTASSIUM,K 4.3 mmol/L (3.5-5.1)
[2022-08-27 06:27] LABS: BAND PERCENT MAN 1 %; LYMPHOCYTES PERCENT MAN 6 % (20-50); MONOCYTES PERCENT MAN 9 % (2-8); SEG NEUTROPHILS PERCENT MAN 84 % (42-75)
[2022-08-27 09:08] VITALS: BP 137/73; PULSE 96
[2022-08-27] MEDS: Enoxaparin 40 MG/0.4 ML Syringe SUBCUT SCH (09:18)
[2022-08-27] MEDS: cefTRIAXone 1 GM Vial IVPUSH SCH (09:20)
[2022-08-27] MEDS: Budesonide 0.5 MG/2 ML Neb Susp NEB SCH (09:26)
[2022-08-27] MEDS: Lisinopril 20 MG Tab PO SCH (09:26)
[2022-08-27] MEDS: amLODIPine 5 MG Tab PO SCH (09:27)
[2022-08-27] MEDS: predniSONE 20 MG Tab PO SCH (09:27)
[2022-08-27] MEDS: Simvastatin 10 MG Tab PO SCH (09:27)
[2022-08-27] MEDS: Azithromycin 250 MG Tab PO SCH (09:27)
== END 2022-08-27 10:55 | disposition home or self-care (01) | DRG 177 ==
LOC: DL.ED 15:58 → DL.MS 20:23
PROVIDERS: ADMIT Internal Medicine; ATTEND Internal Medicine
DX: U07.1 COVID-19 (principal); J12.82 Pneumonia due to coronavirus disease 2019; J44.0 Chronic obstructive pulmonary disease with (acute) lower respiratory infection; J45.901 Unspecified asthma with (acute) exacerbation; J90 Pleural effusion, not elsewhere classified; E87.6 Hypokalemia; E87.1 Hypo-osmolality and hyponatremia; J44.9 Chronic obstructive pulmonary disease, unspecified; E78.5 Hyperlipidemia, unspecified; H54.7 Unspecified visual loss; F41.9 Anxiety disorder, unspecified; F32.A Depression, unspecified; I10 Essential (primary) hypertension; Z88.0 Allergy status to penicillin; Z88.8 Allergy status to other drugs, medicaments and biological substances; Z88.1 Allergy status to other antibiotic agents; E66.9 Obesity, unspecified; Z90.49 Acquired absence of other specified parts of digestive tract; Z90.710 Acquired absence of both cervix and uterus; Z98.49 Cataract extraction status, unspecified eye; K21.9 Gastro-esophageal reflux disease without esophagitis; Z79.899 Other long term (current) drug therapy
CPT/HCPCS: 36415; 71046; 71275; 80053; 83605; 83880; 85025; 87040 ×2; 96365; 96375; 99284; 99285; A9270; J0456; J0696; J2930; J7030; J7050; Q9967; 80048; 84145; 94640; 97110-GP; 97161-GP; 97165-GO; 97530-GO; 97530-GP; 99223; 99232; 99239; J1650; J2920; J3490; J7512; J7620-GY

== ENCOUNTER 2025-03-18 18:55 | Emergency (ER) | payer MEDICARE, OTHER ==
[2025-03-18 19:49] VITALS: BP 141/72; PULSE 88
== END 2025-03-18 19:42 | disposition home or self-care (01) ==
LOC: DL.ED 18:55
DX: S00.83XA Contusion of other part of head, initial encounter (principal); I10 Essential (primary) hypertension; J45.909 Unspecified asthma, uncomplicated; K21.9 Gastro-esophageal reflux disease without esophagitis; Z88.1 Allergy status to other antibiotic agents; Z88.8 Allergy status to other drugs, medicaments and biological substances; Z79.899 Other long term (current) drug therapy; Z79.890 Hormone replacement therapy; Z86.16 Personal history of COVID-19; Z90.49 Acquired absence of other specified parts of digestive tract; Z90.710 Acquired absence of both cervix and uterus; W01.198A Fall on same level from slipping, tripping and stumbling with subsequent striking against other object, initial encounter
CPT/HCPCS: 70450; 72125; 99283